=== PATIENT | male | born 1990 | race Caucasian/White ===

== ENCOUNTER 2020-03-22 10:05 | Outpatient (REF) | payer OTHER, SELFPAY ==
[2020-03-22 12:05] LABS: Appearance Urine CLEAR; Color Urine YELLOW; Glucose Urine UA NEG (NEG); Leukocyte Esterase Urine NEG (NEG); Nitrite Urine NEG (NEG); Specific Gravity - Urine 1.015 (1.005-1.025); Urine Blood NEG (NEG); Urine Ketones NEG (NEG); Urine Protein NEG (NEG-TRACE)
[2020-03-22 12:08] LABS: Estimated Average Glucose 160 mg/dL; Hemoglobin A1c % 7.2 %
[2020-03-22 12:50] LABS: Alanine Aminotransferase 43 U/L (0-40); Albumin Level 4.5 g/dL (3.5-5.0); Alkaline Phosphatase 108 U/L (39-117); Anion Gap 11 (12-20); Aspartate Amino Transferase 21 U/L (5-37); Bilirubin Total 0.6 mg/dL (0.0-1.0); Blood Urea Nitrogen 14 mg/dL (9-16); Calcium 9.4 mg/dL (8.4-10.2); Carbon Dioxide 28 mmol/L (22-29); Chloride 102 mmol/L (96-108); Cholesterol 228 mg/dL; Estimated Glomerular Filt Rate > 60; Glucose Fasting 161 mg/dL (60-99); HDL Cholesterol 39 mg/dL; LDL Cholesterol Calculated 159 mg/dl; Potassium 4.4 mmol/l (3.3-5.1); Sodium 137 mmol/L (135-145); Total Protein 7.1 g/dL (6.5-8.0); Triglycerides 151 mg/dL
[2020-03-22 12:54] LABS: Microalbumin Urine < 5.0 mg/L
== END 2020-03-22 10:06 | disposition home or self-care (01) ==
LOC: HO.LAB 10:05
PROVIDERS: PCP Internal Medicine; Visit Provider Internal Medicine
DX: Z00.00 Encounter for general adult medical examination without abnormal findings (principal); E78.6 Lipoprotein deficiency; E10.9 Type 1 diabetes mellitus without complications
CPT/HCPCS: 36415; 80053; 80061; 81003; 82043; 83036

== ENCOUNTER 2020-09-23 08:46 | Outpatient (REF) | payer OTHER, SELFPAY ==
[2020-09-23 10:01] LABS: Estimated Average Glucose 146 mg/dL; Hemoglobin A1c % 6.7 %
[2020-09-23 10:53] LABS: Alanine Aminotransferase 36 U/L (0-40); Albumin Level 4.4 g/dL (3.5-5.0); Alkaline Phosphatase 100 U/L (39-117); Aspartate Amino Transferase 17 U/L (5-37); Bilirubin Direct 0.3 mg/dL (0.0-0.5); Bilirubin Total 0.7 mg/dL (0.0-1.0); Cholesterol 227 mg/dL; Glucose Fasting 174 mg/dL (60-99); HDL Cholesterol 41 mg/dL; LDL Cholesterol Calculated 146 mg/dl; Triglycerides 203 mg/dL
[2020-09-23 13:01] LABS: Reflex LDLD? No
== END 2020-09-23 08:47 | disposition home or self-care (01) ==
LOC: HO.LAB 08:46
PROVIDERS: PCP Internal Medicine; Visit Provider Internal Medicine
DX: E10.9 Type 1 diabetes mellitus without complications (principal); E78.00 Pure hypercholesterolemia, unspecified
CPT/HCPCS: 36415; 80061; 80076; 82947; 83036

== ENCOUNTER 2021-03-25 10:48 | Outpatient (REF) | payer OTHER, SELFPAY ==
[2021-03-25 10:55] LABS: MANUAL DIFF FLAG NO
[2021-03-25 11:13] LABS: Basophils Percent Auto 0.6 % (0-2); Eosinophils Absolute Auto 0.2 X10*3/uL (0.0-0.4); Eosinophils Percent Auto 2.2 % (0-4); Hematocrit 50.6 % (42-52); Hemoglobin 16.7 g/dl (14.0-18.0); Imm Gran Abs Auto 0.01 X10*3/uL (0.00-0.03); Imm Gran Pct Auto 0.1 % (0.0-0.4); Lymphocytes Absolute Auto 2.5 X10*3/uL (1.2-4.9); Lymphocytes Percent Auto 35.9 % (20-40); Mean Corpuscular Hemoglobin 31.3 pg (27.0-33.0); Mean Corpuscular Volume 94.8 fL (80-98); Mean Platelet Volume 11.5 fL (9.4-12.4); Monocytes Absolute Auto 0.6 X10*3/uL (0.1-1.2); Monocytes Percent Auto 8.2 % (2-11); Neutrophils Absolute Auto 3.7 X10*3/uL (2.0-8.3); Platelet Count 274 X10*3/uL (160-400); Red Blood Count 5.34 X10*6/uL (4.60-5.80); Red Cell Distribution Width 11.9 % (11.0-16.0)
[2021-03-25 11:21] LABS: Estimated Average Glucose 146 mg/dL; Hemoglobin A1c % 6.7 %
[2021-03-25 11:39] LABS: Alanine Aminotransferase 27 U/L (0-40); Albumin Level 4.8 g/dL (3.5-5.0); Alkaline Phosphatase 104 U/L (39-117); Anion Gap 13 (12-20); Aspartate Amino Transferase 15 U/L (5-37); Bilirubin Total 0.8 mg/dL (0.0-1.0); Blood Urea Nitrogen 19 mg/dL (9-16); Carbon Dioxide 28 mmol/L (22-29); Chloride 105 mmol/L (96-108); Cholesterol 238 mg/dL; Estimated Glomerular Filt Rate > 60; Glucose Fasting 61 mg/dL (60-99); HDL Cholesterol 47 mg/dL; LDL Cholesterol Calculated 163 mg/dl; Potassium 4.1 mmol/L (3.3-5.1); Sodium 142 mmol/L (135-145); Total Protein 7.5 g/dL (6.5-8.0); Triglycerides 142 mg/dL
[2021-03-25 11:42] LABS: Appearance Urine CLEAR; Color Urine YELLOW; Glucose Urine UA >=1000 MG/DL (NEG); Leukocyte Esterase Urine NEG (NEG); Nitrite Urine NEG (NEG); PH 6.5 (5.0-8.0); Specific Gravity - Urine 1.015 (1.005-1.025); Urine Blood NEG (NEG); Urine Ketones NEG (NEG); Urine Protein NEG (NEG-TRACE)
[2021-03-25 12:08] LABS: Squamous Epithelial Cell Urine TRACE /LPF
[2021-03-25 12:09] LABS: RBC Urine 0 /HPF (0); WBC Urine 0 /HPF (0-4)
[2021-03-25 12:30] LABS: Creatinine Urine 147.58 mg/dL
== END 2021-03-25 10:49 | disposition home or self-care (01) ==
LOC: HO.LNP 10:48
PROVIDERS: Visit Provider Internal Medicine
DX: Z00.00 Encounter for general adult medical examination without abnormal findings (principal); E78.00 Pure hypercholesterolemia, unspecified; E10.9 Type 1 diabetes mellitus without complications
CPT/HCPCS: 80053; 80061; 81001; 81003; 82043; 83036; 85025

== ENCOUNTER 2021-12-01 23:39 | Emergency (ER) | payer OTHER, SELFPAY ==
[2021-12-02 00:02] VITALS: BP 146/86; PULSE 84; RESP 18; TEMP 36.6; O2SAT 98; BMI 28.1
[2021-12-02 00:30] LABS: Basophils Percent Auto 0.4 % (0-2); Eosinophils Absolute Auto 0.2 X10*3/uL (0.0-0.4); Eosinophils Percent Auto 1.9 % (0-4); Hematocrit 46.2 % (42.0-52.0); Imm Gran Abs Auto 0.04 X10*3/uL (0.00-0.03); Imm Gran Pct Auto 0.4 % (0.0-0.4); Lymphocytes Absolute Auto 3.3 X10*3/uL (1.2-4.9); Lymphocytes Percent Auto 33.2 % (20-40); MANUAL DIFF FLAG NO; Mean Corpuscular HGB Conc 34.6 g/dl (31.0-36.0); Mean Corpuscular Hemoglobin 31.3 pg (27.0-33.0); Mean Corpuscular Volume 90.4 fL (80.0-98.0); Mean Platelet Volume 10.7 fL (9.4-12.4); Monocytes Absolute Auto 0.7 X10*3/uL (0.1-1.2); Monocytes Percent Auto 7.2 % (2-11); Neutrophils Absolute Auto 5.6 x10*3/uL (2.0-8.3); Neutrophils Percent Auto 56.9 % (45-73); Platelet Count 248 X10*3/uL (160-400); Red Blood Count 5.11 X10*6/uL (4.60-5.80); Red Cell Distribution Width 12.3 % (11.0-16.0); White Blood Count 9.8 X10*3/uL (4.8-10.8)
--- NOTE | 2021-12-02 00:41 | ED_ITS ---
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 The patient that he was doing compressions on is high risk. Patient is up to date with tetanous and has hepatitis titers. Onset (ago): hour(s) Reason for Medical Clearance: other Place: work Traumatic Symptoms: other Associated Symptoms: denies other symptoms Related Information Home Medications Medication Instructions Recorded Confirmed insulin lispro 100 unit/mL 0 - 130 unit subcut DAILY 12/02/21 12/02/21 subcutaneous solution (Humalog U-100 Insulin) Allergies Allergy/AdvReac Type Severity Reaction Status Date / Time No Known Allergies Allergy Verified 12/02/21 00:06 Review of Systems Neurologic: Denies Sensory deficit (Neuro) Physical Exam Vital Signs: Vital Signs: Last Vital Signs Temp 98 F 12/02/21 00:02 Pulse 84 12/02/21 00:02 Resp 18 12/02/21 00:02 BP 146/86 H 12/02/21 00:02 Pulse Ox 98 12/02/21 00:02 O2 Del Method 12/02/21 00:02 BMI result Body Mass Index 28.1 Const: General: healthy appearing Nutritional Appearance: average body habitus Orientation/consciousness: oriented to person and patient oriented x3 Limitations: no limitations HEENT: Head: Yes normal to inspection Ears: external ears normal General nose exam: Normal external nose present Mouth: Normal oral and palatal mucosa present and oropharynx normal Throat: Yes posterior oropharynx normal Eyes: General: appearance normal, both eyes and all related structures Neck: Other: supple Neck: Yes normal visual inspection Chest: Chest palpation & inspection: normal inspection of the chest Resp: Auscultation: clear to auscultation bilaterally Cardio: Jugular venous distension: no JVD Rate: regular rate Rhythm: regular rhythm Heart sounds: S1 normal heart sound present and S2 normal heart sound present GI: Inspection: Yes normal to inspection Palpation (GI): Soft to palpation, nontender and No hepatosplenomegaly present Auscultation: normal bowel sounds : General: Yes no CVA tenderness Back/Spine/Pelvis: Back: no CVA tenderness Skin: General skin exam: no rashes or lesions noted Neuro: General: oriented to person and patient oriented x3 Cranial nerves: Yes CN's II-XII intact bilaterally Motor exam (neuro): 5/5 motor strength present throughout Sensory Exam: No Sensory deficit (Neuro) Extrem: General: Yes normal to inspection Psych: Appearance: grossly normal Course Reevaluation(s) Reevaluation #1: Patient is concerned about exposure to a very high risk patient. The exposure is very low risk. Will not offer prophylaxis at this time Time: 00:56 [facility] - Medical Clearance Lab Data Result diagrams: 12/02/21 00:27 12/02/21 00:27 Labs: Lab Results 12/02/21 12/02/21 Range/Units 00:27 00:27 WBC 9.8 (4.8-10.8) X10*3/uL RBC 5.11 (4.60-5.80) X10*6/uL Hgb 16.0 (14.0-18.0) g/dl Hct 46.2 (42.0-52.0) % MCV 90.4 (80.0-98.0) fL MCH 31.3 (27.0-33.0) pg MCHC 34.6 (31.0-36.0) g/dl RDW 12.3 (11.0-16.0) % Plt Count 248 (160-400) X10*3/uL MPV 10.7 (9.4-12.4) fL Immature Gran % (Auto) 0.4 (0.0-0.4) % Neut % (Auto) 56.9 (45-73) % Lymph % (Auto) 33.2 (20-40) % [place] % (Auto) 7.2 (2-11) % Eos % (Auto) 1.9 (0-4) % Baso % (Auto) 0.4 (0-2) % Lymph # (Auto) 3.3 (1.2-4.9) X10*3/uL [place] # (Auto) 0.7 (0.1-1.2) X10*3/uL Eos # (Auto) 0.2 (0.0-0.4) X10*3/uL Baso # (Auto) 0.0 (0.0-0.2) X10*3/uL Abs Immat Gran (auto) 0.04 H (0.00-0.03) X10*3/uL Absolute Neuts (auto) 5.6 (2.0-8.3) x10*3/uL Absolute Nucleated RBC 0.000 (0.0-0.012) X10*3/uL Nucleated RBC % (auto) 0.0 (0.0-0.2) /100WBC Sodium 136 (135-145) mmol/L Potassium 3.8 (3.3-5.1) mmol/L Chloride 101 (96-108) mmol/L Carbon Dioxide 24 (22-29) mmol/L Anion Gap 15 (12-20) BUN 17 H (9-16) mg/dL Creatinine 1.14 (0.5-1.4) mg/dL Estim Creat Clear Calc 100.8 Estimated GFR > 60 Random Glucose 247 H (60-115) mg/dL Calcium 9.5 (8.4-10.2) mg/dL Total Bilirubin 0.7 (0.0-1.0) mg/dL Direct Bilirubin 0.2 (0.0-0.5) mg/dL AST 16 (5-37) U/L ALT 31 (0-40) U/L Alkaline Phosphatase 110 (39-117) U/L Total Protein 7.3 (6.5-8.0) g/dL Albumin 4.6 (3.5-5.0) g/dL Discharge Plan Discharge Clinical Impression: Exposure to body fluid of infectious patient Patient Disposition: Home, Self-Care Prescriptions: No Action insulin lispro [Humalog U-100 Insulin] 100 unit/mL solution 0 - 130 unit subcut DAILY Referrals: Physician,Unknown J [Primary Care Provider] - 1 day (follow up with [facility] tomorrow)
[2021-12-02 00:47] LABS: Alanine Aminotransferase 31 U/L (0-40); Albumin Level 4.6 g/dL (3.5-5.0); Alkaline Phosphatase 110 U/L (39-117); Anion Gap 15 (12-20); Aspartate Amino Transferase 16 U/L (5-37); Bilirubin Direct 0.2 mg/dL (0.0-0.5); Bilirubin Total 0.7 mg/dL (0.0-1.0); Blood Urea Nitrogen 17 mg/dL (9-16); Calcium 9.5 mg/dL (8.4-10.2); Carbon Dioxide 24 mmol/L (22-29); Chloride 101 mmol/L (96-108); Creatinine Clr Calc Pharmacy 100.8; Estimated Glomerular Filt Rate > 60; Glucose Random 247 mg/dL (60-115); Potassium 3.8 mmol/L (3.3-5.1); Sodium 136 mmol/L (135-145); Total Protein 7.3 g/dL (6.5-8.0)
[2021-12-02 01:21] LABS: HIV AB/AG Nonreactive (Nonreactive); HIV Num 1 0.07 S/CO (0.00-0.99)
[2021-12-02 09:02] LABS: HBS Num1 1.76 mIU/mL (0-7.99); HBc Num1 0.09 S/CO (0.00-0.79); HBsAGNum1 0.26 S/CO (0.00-0.99); Hepatitis B Core Antibody Nonreactive (Nonreactive); Hepatitis B Surface Antigen Negative (Negative); ~HepC Num1 0.06 S/CO (0.00-0.79); ~Hepatitis B Surface Antibody NONREACTIVE (Nonreactive); ~Hepatitis C Antibody Nonreactive (Nonreactive)
== END 2021-12-02 01:43 | disposition home or self-care (01) ==
PROVIDERS: Emergency Provider Emergency Medicine; PCP Internal Medicine
DX: Z04.2 Encounter for examination and observation following work accident (principal); Z77.21 Contact with and (suspected) exposure to potentially hazardous body fluids
CPT/HCPCS: 36415; 80048; 80076; 85025; 86704; 86706; 86803; 87340; 87389; 99282; 99283

== ENCOUNTER → 2022-04-08 08:18 | Outpatient (BNVA) | payer OTHER, SELFPAY | PROVIDERS: PCP Internal Medicine; Visit Provider Physician Assistant | DX: S60.511A Abrasion of right hand, initial encounter (principal); S80.01XA Contusion of right knee, initial encounter; S90.02XA Contusion of left ankle, initial encounter; S90.32XA Contusion of left foot, initial encounter; W50.0XXA Accidental hit or strike by another person, initial encounter | CPT/HCPCS: 73564; 73610; 73630; 99204 ==

== ENCOUNTER → 2022-04-15 10:00 | Outpatient (BNVA) | payer OTHER, SELFPAY | PROVIDERS: PCP Internal Medicine; Visit Provider Physician Assistant | DX: S93.402A Sprain of unspecified ligament of left ankle, initial encounter (principal); X50.0XXA Overexertion from strenuous movement or load, initial encounter | CPT/HCPCS: 99213 ==

== ENCOUNTER 2023-01-26 11:39 | Outpatient (REF) | payer OTHER, SELFPAY ==
[2023-01-26 11:48] LABS: MANUAL DIFF FLAG NO
[2023-01-26 12:30] LABS: Appearance Urine Clear; Color Urine Yellow; Glucose Urine UA Negative (Negative); Leukocyte Esterase Urine Negative (Negative); Nitrite Urine Negative (Negative); Specific Gravity - Urine <= 1.005 (1.005-1.025); Urine Blood Negative (Negative); Urine Ketones Negative (Negative); Urine Protein Negative (Neg-Trace)
[2023-01-26 12:31] LABS: Basophils Absolute Auto 0.1 X10*3/uL (0.0-0.2); Basophils Percent Auto 0.6 % (0-2); Eosinophils Absolute Auto 0.3 X10*3/uL (0.0-0.4); Eosinophils Percent Auto 3.6 % (0-4); Hematocrit 46.6 % (42.0-52.0); Hemoglobin 15.6 g/dl (14.0-18.0); Imm Gran Abs Auto 0.02 X10*3/uL (0.00-0.03); Imm Gran Pct Auto 0.3 % (0.0-0.4); Lymphocytes Percent Auto 38.1 % (20-40); Mean Corpuscular HGB Conc 33.5 g/dl (31.0-36.0); Mean Corpuscular Volume 95.5 fL (80.0-98.0); Mean Platelet Volume 11.6 fL (9.4-12.4); Monocytes Absolute Auto 0.5 X10*3/uL (0.1-1.2); Monocytes Percent Auto 6.8 % (2-11); Neutrophils Absolute Auto 3.9 x10*3/uL (2.0-8.3); Neutrophils Percent Auto 50.6 % (45-73); Platelet Count 238 X10*3/uL (160-400); Red Blood Count 4.88 X10*6/uL (4.60-5.80); Red Cell Distribution Width 12.1 % (11.0-16.0); White Blood Count 7.8 X10*3/uL (4.8-10.8)
[2023-01-26 12:36] LABS: Bacteria Urine None Seen (None Seen); Hyaline Casts Urine 0-2 /LPF (0-2); RBC Urine 0-2 /HPF (0-2); Squamous Epithelial Cell Urine 0-2 /HPF (0-2); WBC Urine 0-5 /HPF (0-5)
[2023-01-26 12:38] LABS: Estimated Average Glucose 123 mg/dL; Hemoglobin A1c % 5.9 %
[2023-01-26 12:43] LABS: Alanine Aminotransferase 26 U/L (0-40); Albumin Level 4.5 g/dL (3.5-5.0); Alkaline Phosphatase 97 U/L (39-117); Anion Gap 12 (12-20); Aspartate Amino Transferase 19 U/L (5-37); Bilirubin Total 0.5 mg/dL (0.0-1.0); Blood Urea Nitrogen 15 mg/dL (9-16); Calcium 9.8 mg/dL (8.4-10.2); Carbon Dioxide 28 mmol/L (22-29); Chloride 104 mmol/L (96-108); Cholesterol 217 mg/dL; Estimated Glomerular Filt Rate > 60; Glucose Fasting 92 mg/dL (60-99); HDL Cholesterol 42 mg/dL; LDL Cholesterol Calculated 137 mg/dl; Potassium 4.1 mmol/L (3.3-5.1); Sodium 140 mmol/L (135-145); Total Protein 7.4 g/dL (6.5-8.0); Triglycerides 190 mg/dL
[2023-01-26 13:22] LABS: Creatinine Urine 35.26 mg/dL; Microalbumin Urine < 5.0 mg/L
== END 2023-01-26 11:40 | disposition home or self-care (01) ==
LOC: HO.LNP 11:39
PROVIDERS: Visit Provider Internal Medicine
DX: Z00.00 Encounter for general adult medical examination without abnormal findings (principal); E10.9 Type 1 diabetes mellitus without complications; E78.00 Pure hypercholesterolemia, unspecified
CPT/HCPCS: 80053; 80061; 81001; 82043; 83036; 85025

== ENCOUNTER 2023-02-02 10:15 | Outpatient (REF) | payer OTHER, SELFPAY ==
[2023-02-02 11:34] LABS: HIV AB/AG Nonreactive (Nonreactive); HIV Num 1 0.05 S/CO (0.00-0.99)
[2023-02-02 11:55] LABS: Syphilis Screen Nonreactive (Nonreactive)
[2023-02-02 17:34] LABS: CT PCR NOT DETECTED (Not Detect.); NG PCR NOT DETECTED (Not Detect.)
== END 2023-02-02 10:16 | disposition home or self-care (01) ==
LOC: HO.LAB 10:15
PROVIDERS: PCP Internal Medicine; Visit Provider Internal Medicine
DX: Z11.4 Encounter for screening for human immunodeficiency virus [HIV] (principal); L98.9 Disorder of the skin and subcutaneous tissue, unspecified; Z20.2 Contact with and (suspected) exposure to infections with a predominantly sexual mode of transmission
CPT/HCPCS: 0353U; 86780; 87389

== ENCOUNTER 2023-05-06 10:38 | Outpatient (REF) | payer OTHER, SELFPAY ==
[2023-05-06 11:06] LABS: Cholesterol 240 mg/dL (<200); HDL Cholesterol 37 mg/dL (>40); LDL Cholesterol Calculated 179 mg/dL (<100); Triglycerides 122 mg/dL (<150)
[2023-05-06 11:15] LABS: Alanine Aminotransferase 24 U/L (0-40); Albumin Level 4.5 g/dL (3.5-5.0); Alkaline Phosphatase 109 U/L (39-117); Aspartate Amino Transferase 15 U/L (5-37); Bilirubin Direct 0.2 mg/dL (0.0-0.5); Bilirubin Total 0.8 mg/dL (0.0-1.0); Glucose Fasting 392 mg/dL (60-99); Total Protein 7.3 g/dL (6.5-8.0)
[2023-05-06 11:21] LABS: Estimated Average Glucose 160 mg/dL; Hemoglobin A1c % 7.2 % (<6.0)
[2023-05-06 11:29] LABS: Reflex LDLD? No
== END 2023-05-06 10:39 | disposition home or self-care (01) ==
LOC: HO.LNP 10:38
PROVIDERS: Visit Provider Internal Medicine
DX: E10.9 Type 1 diabetes mellitus without complications (principal); E78.00 Pure hypercholesterolemia, unspecified
CPT/HCPCS: 80061; 80076; 82947; 83036

== ENCOUNTER 2023-07-09 21:02 | Emergency (ER) | payer OTHER, SELFPAY ==
--- NOTE | ~2023-07-09 | XR_ITS ---
EXAMINATION: XR KNEE, LEFT CLINICAL INFORMATION: Fall COMPARISON: None available. TECHNIQUE: Four views of the left knee. FINDINGS: No fracture or joint effusion. Alignment is anatomic. Joint spaces are maintained. No abnormal soft tissue calcification. XR/XR knee LT 3V IMPRESSION: Normal left knee.
[2023-07-09 21:16] VITALS: BP 128/77; PULSE 88; RESP 17; TEMP 37; O2SAT 96; BMI 31.3
--- NOTE | 2023-07-09 23:53 | ED_ITS ---
HPI - General Adult General Chief complaint: Fall Stated complaint: work inj, fell and hurt left knee Time Seen by Provider: 07/09/23 23:12 Source: patient, RN notes reviewed and old records reviewed Mode of arrival: ambulatory Limitations: no limitations History of Present Illness HPI narrative: 33-year-old male presents for evaluation of left knee pain. 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 must have stepped on snow or ice. He reports that his left knee drug little bit to the side and he fell to the ground He denies hitting his head or losing consciousness He reports he is able to walk with minimal discomfort Patient reports that he explained to his boss what happened and was told to come to the ER for evaluation Related Data Home Medications Medication Instructions Recorded Confirmed insulin lispro 100 unit/mL 0 - 130 unit subcut DAILY 12/02/21 12/02/21 subcutaneous solution (Humalog U-100 Insulin) Allergies Allergy/AdvReac Type Severity Reaction Status Date / Time No Known Allergies Allergy Verified 07/09/23 21:13 Review of Systems Constitutional: Constitutional: Denies headache(s) ENT: Denies headache(s) Musculoskeletal: Musculoskeletal: Reports arthralgias, Denies joint swelling and Denies limited range of motion Neurologic: Denies headache(s) PMFSH Social History Social History Advance Directives: No Advance Directives Information Provided: No Physical Exam ED Vital Signs: Vital Signs - 24 hr 07/09/23 21:16 Temperature 98.6 F Pulse Rate 88 Respiratory Rate 17 Blood Pressure 128/77 Pulse Oximetry 96 Oxygen Delivery Method Room Air BMI result Body Mass Index 31.3 Const General: healthy appearing, comfortable, no acute distress, alert and awake Nutritional Appearance: well nourished Orientation/consciousness: patient oriented x3 HENMT Head: Yes normocephalic and Yes atraumatic Resp Effort & Inspection: normal respiratory effort, able to speak in complete sentences and not labored Skin General skin exam: elasticity normal Neuro General: patient oriented x3 Cranial nerves: Yes Bilaterally intact EOM present Cognition (Neuro): normal cognition Extrem Other: There is no significant edema, erythema, ecchymosis or tenderness to the entire left knee. Negative anterior drawer testing. Patient has full range of motion to the left knee and is able to ambulate without difficulty Medical Decision Making Medical Decision Making MDM Narrative: 33-year-old male presents for evaluation of a minor knee injury to the left. He has a very reassuring exam, there is no significant edema, joint effusion or decreased range of motion. X-rays negative for fracture, he will be discharged with symptomatic care only Differential Diagnosis Differential Diagnoses: The differential diagnosis associated with the presentation includes Knee pain Knee sprain Contusion Ligamentous injury Independent Interpretation I performed an independent interpretation of an: Plain X-Ray (No obvious fracture of the left knee) Radiology Impression Discussion of test interpretation with radiology: I have reviewed the radiologist's reading. (Normal left knee) Discharge Plan Discharge Clinical Impression: Acute pain of left knee Patient Disposition: Home, Self-Care Instructions: Knee Pain (ED) Additional Instructions: Your x-ray showed a normal left knee x-ray, no evidence of fracture. Based on your physical exam, I have a low suspicion for ligamentous injury You may apply ice and use ibuprofen for the next few days Follow-up with your primary doctor Prescriptions: No Action insulin lispro [Humalog U-100 Insulin] 100 unit/mL solution 0 - 130 unit subcut DAILY Interventions: ED Discharge Assessment Last Done: 07/10/23 00:05 Discharge Date/Time: 07/10/23 00:10
== END 2023-07-10 00:10 | disposition home or self-care (01) ==
PROVIDERS: Emergency Provider Internal Medicine
DX: Z04.2 Encounter for examination and observation following work accident (principal); M25.562 Pain in left knee
CPT/HCPCS: 73562; 99283; 99284

== ENCOUNTER 2023-09-09 11:53 | Outpatient (REF) | payer OTHER, SELFPAY ==
[2023-09-09 12:46] LABS: Alanine Aminotransferase 43 U/L (0-40); Albumin Level 4.3 g/dL (3.5-5.0); Alkaline Phosphatase 119 U/L (39-117); Aspartate Amino Transferase 24 U/L (5-37); Bilirubin Direct 0.3 mg/dL (0.0-0.5); Bilirubin Total 0.7 mg/dL (0.0-1.0); Cholesterol 221 mg/dL (<200); Glucose Fasting 191 mg/dL (60-99); HDL Cholesterol 45 mg/dL (>40); LDL Cholesterol Calculated 155 mg/dL (<100); Total Protein 7.3 g/dL (6.5-8.0); Triglycerides 108 mg/dL (<150)
[2023-09-09 12:49] LABS: Reflex LDLD? No
[2023-09-09 13:16] LABS: Estimated Average Glucose 140 mg/dL; Hemoglobin A1c % 6.5 % (<6.0)
== END 2023-09-09 11:54 | disposition home or self-care (01) ==
LOC: HO.LNP 11:53
PROVIDERS: Visit Provider Internal Medicine
DX: E10.9 Type 1 diabetes mellitus without complications (principal); E78.00 Pure hypercholesterolemia, unspecified
CPT/HCPCS: 80061; 80076; 82947; 83036

== ENCOUNTER 2024-03-16 12:03 | Outpatient (REF) | payer SELFPAY ==
[2024-03-16 12:14] LABS: MANUAL DIFF FLAG NO
[2024-03-16 12:20] LABS: Basophils Absolute Auto 0.1 X10*3/uL (0.0-0.2); Basophils Percent Auto 0.7 % (0-2); Eosinophils Absolute Auto 0.3 X10*3/uL (0.0-0.4); Eosinophils Percent Auto 3.5 % (0-4); Hematocrit 48.6 % (42.0-52.0); Hemoglobin 16.2 g/dl (14.0-18.0); Imm Gran Abs Auto 0.02 X10*3/uL (0.00-0.03); Imm Gran Pct Auto 0.2 % (0.0-0.4); Lymphocytes Absolute Auto 2.6 X10*3/uL (1.2-4.9); Lymphocytes Percent Auto 29.7 % (20-40); Mean Corpuscular HGB Conc 33.3 g/dl (31.0-36.0); Mean Corpuscular Hemoglobin 31.8 pg (27.0-33.0); Mean Corpuscular Volume 95.5 fL (80.0-98.0); Mean Platelet Volume 11.5 fL (9.4-12.4); Monocytes Absolute Auto 0.7 X10*3/uL (0.1-1.2); Monocytes Percent Auto 8.3 % (2-11); Neutrophils Percent Auto 57.6 % (45-73); Platelet Count 242 X10*3/uL (160-400); Red Blood Count 5.09 X10*6/uL (4.60-5.80); Red Cell Distribution Width 12.3 % (11.0-16.0); White Blood Count 8.6 X10*3/uL (4.8-10.8)
[2024-03-16 12:21] LABS: Appearance Urine Clear; Color Urine Yellow; Glucose Urine UA Negative (Negative); Leukocyte Esterase Urine Negative (Negative); Nitrite Urine Negative (Negative); PH 5.5 (5.0-9.0); Urine Blood Negative (Negative); Urine Ketones Negative (Negative); Urine Protein Negative (Neg-Trace)
[2024-03-16 12:24] LABS: Bacteria Urine None Seen (None Seen); Hyaline Casts Urine 0-2 /LPF (0-2); RBC Urine 0-2 /HPF (0-2); Squamous Epithelial Cell Urine 0-2 /HPF (0-2); WBC Urine 0-5 /HPF (0-5)
[2024-03-16 12:32] LABS: Estimated Average Glucose 157 mg/dL; Hemoglobin A1c % 7.1 % (<6.0)
[2024-03-16 12:33] LABS: Alanine Aminotransferase 51 U/L (0-40); Albumin Level 4.5 g/dL (3.5-5.0); Alkaline Phosphatase 94 U/L (39-117); Anion Gap 11 (12-20); Aspartate Amino Transferase 29 U/L (5-37); Bilirubin Total 0.9 mg/dL (0.0-1.0); Blood Urea Nitrogen 18 mg/dL (9-16); Calcium 9.9 mg/dL (8.4-10.2); Carbon Dioxide 27 mmol/L (22-29); Chloride 108 mmol/L (96-108); Cholesterol 244 mg/dL (<200); Estimated Glomerular Filt Rate > 60; Glucose Fasting 136 mg/dL (60-99); HDL Cholesterol 38 mg/dL (>40); LDL Cholesterol Calculated 179 mg/dL (<100); Potassium 4.2 mmol/L (3.3-5.1); Sodium 142 mmol/L (135-145); Total Protein 7.4 g/dL (6.5-8.0); Triglycerides 137 mg/dL (<150)
[2024-03-16 12:59] LABS: Creatinine Urine 97.76 mg/dL; Microalbum/Creatinine Ratio Ur 27.6 ug/mg cr (<30)
== END 2024-03-16 12:04 | disposition home or self-care (01) ==
LOC: HO.LNP 12:03
PROVIDERS: Visit Provider Internal Medicine
DX: Z00.00 Encounter for general adult medical examination without abnormal findings (principal); E10.9 Type 1 diabetes mellitus without complications; E78.6 Lipoprotein deficiency; E78.00 Pure hypercholesterolemia, unspecified
CPT/HCPCS: 80053; 80061; 81001; 82043; 82570; 83036; 85025

== ENCOUNTER 2024-05-28 21:32 | Emergency (ER) | payer OTHER, SELFPAY ==
--- NOTE | ~2024-05-28 | XR_ITS ---
EXAMINATION: XR KNEE, RIGHT CLINICAL INFORMATION: fall/pain COMPARISON: None available. TECHNIQUE: Four views of the right knee. FINDINGS: No fracture or joint effusion. Alignment is anatomic. Joint spaces are maintained. No abnormal soft tissue calcification. XR/XR knee RT 4V IMPRESSION: No significant abnormality identified. Electronically signed by: Franko Sharma MD 05/28/2024 11:23 PM [facility]
--- NOTE | ~2024-05-28 | XR_ITS ---
EXAMINATION: XR WRIST, RIGHT CLINICAL INFORMATION: fall/pain COMPARISON: None available. TECHNIQUE: PA, lateral, and oblique views of the right wrist. FINDINGS: The bones and soft tissues are unremarkable. No fracture. Alignment is anatomic with normal joint spaces. No erosions or abnormal soft tissue calcifications. XR/XR wrist RT min 3V IMPRESSION: Normal right wrist. Electronically signed by: Yevgeniy Mendez MD 05/28/2024 11:32 PM [facility]
[2024-05-28 21:33] VITALS: BP 126/85; PULSE 107; RESP 16; TEMP 36.6; O2SAT 97; BMI 31.2
[2024-05-28] MEDS: Ibuprofen 600 MG TABLET PO (21:59)
--- NOTE | 2024-05-28 22:03 | ED_ITS ---
HPI - Extremity Problem General Chief complaint: Extremity Injury, Upper Stated complaint: Knee inj bilateral hand inj work related Time Seen by Provider: 05/28/24 22:03 History of Present Illness ED Provider: Lauren BURTON Narrative: The patient is a 34-year-old male. He is a type 1 diabetic. 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 He has some pain in his right wrist, primarily on the ulnar side of the wrist. He also has some abrasions to the palm of the left hand and to both knees. He has pain in both knees. The right knee hurts more than the left knee. He is able to walk. Related Data Home Medications ?Medication ?Instructions ?Recorded ?Confirmed insulin lispro 100 unit/mL 0 - 130 unit subcut DAILY 12/02/21 12/02/21 subcutaneous solution (Humalog U-100 Insulin) Allergies Allergy/AdvReac Type Severity Reaction Status Date / Time No Known Allergies Allergy Verified 05/28/24 21:37 Review of Systems Review of Systems: Yes all other systems are reviewed and are negative [facility] Social History Social History Smoked in Last 30 Days: No Use of substances other than those prescribed or required for medical reasons: Unknown Advance Directives: No Advance Directives Information Provided: No Do you have a plan to hurt others: No Plan Physical Exam Vital Signs: Vital Signs: Last Vital Signs Temp 97.7 F 05/28/24 23:03 Pulse 105 H 05/28/24 23:03 Resp 18 05/28/24 23:03 BP 149/90 H 05/28/24 23:03 Pulse Ox 95 05/28/24 23:03 O2 Del Method Room Air 05/28/24 23:03 BMI result Body Mass Index 31.2 Const: Other: The patient is a 34-year-old male who was awake and alert and does not seem acutely ill. He is pleasant and cooperative. HEENT: Other: No trauma to the head or the face. Eyes: General: appearance normal, both eyes and all related structures Neck: Other: Moving his neck easily Skin: Other: The patient has abrasions to the skin of the knees and the palm of the left hand. Neuro: Other: The patient is awake and alert with a normal mental status. Cranial nerves are grossly intact. He has intact strength in his extremities. Extrem: Other: The patient has some tenderness along the ulnar aspect of the right wrist that is worse with supination. He has no snuffbox tenderness of the right wrist. He can flex and extend the wrist reasonably well. The patient has the abrasions to the skin of the left palm and to the skin of both knees. He has some tenderness to the right knee. No instability. 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 He has a abrasions to both knees has some injuries to both hands. On the right hand he has wrist pain which is mostly on the ulnar side of the wrist. X-rays of the right hand and right knee are negative. The patient believes he is up-to-date on tetanus. We will treat his right wrist injury with the splint. Abrasions were cleaned and dressed with bacitracin. [facility] up with the [facility]. Discharge Plan Discharge Clinical Impression: Sprain and strain of wrist, Abrasion of left hand, Abrasion of knee, bilateral Patient Disposition: Home, Self-Care Instructions: Abrasion (ED), Wrist Sprain (ED) Additional Instructions: Although the official reading of your x-rays is not available I think you do not have any fractures. I will call you the official reading is different. I think you have a mild sprain of your right wrist. Please wear the wrist splint provided. You have abrasions to your hands and your knees. Please keep these wounds clean and dry. Use bacitracin and a Band-Aid to keep them covered. My hope is you will be able to get checked at the [facility] on Wednesday for your next scheduled shift. Use acetaminophen as needed for discomfort. Return to the emergency room if worse. Prescriptions: No Action insulin lispro [Humalog U-100 Insulin] 100 unit/mL solution 0 - 130 unit subcut DAILY Referrals: [facility] [Provider Group] (Right wrist sprain, multiple abrasion) Jake Pascal MD [Primary Care Provider] - Stand Alone Forms: Work/School Release Interventions: ED Discharge Assessment Last Done: 05/28/24 23:03 Discharge Date/Time: 05/28/24 23:03 Print Language: Turkmen
[2024-05-28 22:04] VITALS: BP 142/86; PULSE 107; RESP 18; O2SAT 95
[2024-05-28] MEDS: Bacitracin Oint 0.9 GM PACKET 3 APPL TOPICAL (22:48)
[2024-05-28 22:55] VITALS: BP 149/90; PULSE 105; RESP 18; TEMP 36.5; O2SAT 95
[2024-05-28 23:03] VITALS: BP 149/90; PULSE 105; RESP 18; TEMP 36.5; O2SAT 95
== END 2024-05-28 23:03 | disposition home or self-care (01) ==
PROVIDERS: Emergency Provider Emergency Medicine; PCP Internal Medicine
DX: S63.501A Unspecified sprain of right wrist, initial encounter (principal); S60.512A Abrasion of left hand, initial encounter; S80.212A Abrasion, left knee, initial encounter; S80.211A Abrasion, right knee, initial encounter; M25.532 Pain in left wrist; M25.531 Pain in right wrist; E10.9 Type 1 diabetes mellitus without complications; Y33.XXXA Other specified events, undetermined intent, initial encounter; Y93.9 Activity, unspecified; Y92.9 Unspecified place or not applicable; Y99.0 Civilian activity done for income or pay; Z79.899 Other long term (current) drug therapy; Z79.4 Long term (current) use of insulin
CPT/HCPCS: 29125; 73110; 73564; 99284

== ENCOUNTER → 2024-05-29 10:35 | Outpatient (BNVA) | payer OTHER, SELFPAY | PROVIDERS: PCP Internal Medicine; Visit Provider Physician Assistant Medical | DX: S60.211A Contusion of right wrist, initial encounter (principal); S60.212A Contusion of left wrist, initial encounter; S80.02XA Contusion of left knee, initial encounter; S80.01XA Contusion of right knee, initial encounter; S63.591A Other specified sprain of right wrist, initial encounter; Y35.891A Legal intervention involving other specified means, law enforcement official injured, initial encounter | CPT/HCPCS: 99202 ==

== ENCOUNTER → 2024-05-31 13:52 | Outpatient (BNVA) | payer OTHER, SELFPAY | PROVIDERS: PCP Internal Medicine; Visit Provider Physician Assistant | DX: S63.501A Unspecified sprain of right wrist, initial encounter (principal); Y35.891A Legal intervention involving other specified means, law enforcement official injured, initial encounter | CPT/HCPCS: 99213 ==

== ENCOUNTER → 2024-06-02 08:44 | Outpatient (BNVA) | payer OTHER, SELFPAY | PROVIDERS: PCP Internal Medicine; Visit Provider Physician Assistant | DX: S63.591A Other specified sprain of right wrist, initial encounter (principal); Y35.891A Legal intervention involving other specified means, law enforcement official injured, initial encounter | CPT/HCPCS: 99213 ==

== ENCOUNTER 2024-06-08 20:55 | Inpatient (IN) | payer OTHER, SELFPAY ==
--- NOTE | ~2024-06-08 | MR_ITS ---
EXAMINATION: MR KNEE WITHOUT AND WITH CONTRAST, LEFT CLINICAL INFORMATION: Nonresolving cellulitis COMPARISON: CT 06/10/2024 TECHNIQUE: MRI of the knee was performed before and after the intravenous administration of 10 mL Gadavist on a high-field scanner. FINDINGS: MENISCI: Medial meniscus: Intact. Lateral meniscus: Intact. LIGAMENTS: Cruciate: Intact. Collateral: Intact. EXTENSOR MECHANISM: Intact. Small skin defect anterior to the tibial tubercle with underlying edema with reticular enhancement/cellulitis and an ill-defined phlegmonous collection measuring approximately 1.9 x 0.9 x 2.8 cm. No drainable collection. No underlying osseous abnormality to suggest osteomyelitis. The patella tendon appears intact. There is mild reactive edema and fluid in the deep infrapatellar bursa. Subcutaneous edema surrounds the knee and extends distally superficial to the muscles of the lateral compartment. ARTICULAR CARTILAGE/BONE: Patellofemoral compartment: Normal. Medial compartment: Normal. Lateral compartment: Normal. JOINT FLUID AND BURSAE: No joint effusion. MR/MR knee LT wo/w con IMPRESSION: 1. Small skin defect anterior to the tibial tubercle with underlying edema/cellulitis and an ill-defined phlegmonous collection measuring approximately 1.9 x 0.9 x 2.8 cm. No drainable collection. No evidence of osteomyelitis. Mild reactive edema and fluid in the deep infrapatellar bursa. 2. Subcutaneous edema surrounds the knee and extends distally superficial to the muscles of the lateral compartment. Electronically signed by: Riley Neal MD 06/11/2024 01:41 PM EST
--- NOTE | ~2024-06-08 | XR_ITS ---
EXAMINATION: XR KNEE, LEFT CLINICAL INFORMATION: injury COMPARISON: None available. TECHNIQUE: 2 views of the left knee. FINDINGS: No fracture or joint effusion. Alignment is anatomic. Joint spaces are maintained. No abnormal soft tissue calcification. XR/XR knee LT 2V IMPRESSION: No significant abnormality identified Electronically signed by: Franko Sharma MD 06/08/2024 11:33 PM EST
--- NOTE | ~2024-06-08 | US_ITS ---
EXAMINATION: US TRIPLEX LOWER EXTREMITY, LEFT CLINICAL INFORMATION: Left lower extremity pain. COMPARISON: None available. TECHNIQUE: Color-flow triplex imaging with spectral analysis and compression Doppler were performed on the left lower extremity. FINDINGS: Respiratory variation, normal compression and augmented flow are noted throughout the left lower extremity. The visualized common femoral vein, superficial femoral vein, profunda femoral vein, popliteal vein and midcalf peroneal and posterior tibial venous segments show no evidence of deep venous thrombosis. There is no Vega's cyst. US/US venous duplex LE LT IMPRESSION: No evidence of deep venous thrombosis involving the left lower extremity. Electronically signed by: Franko Sharma MD 06/08/2024 11:16 PM EST
--- NOTE | ~2024-06-08 | CT_ITS ---
EXAMINATION: CT KNEE WITH CONTRAST, LEFT CLINICAL INFORMATION: Infection, evaluate for abscess or joint effusion. COMPARISON: Radiographs 06/08/2024 TECHNIQUE: CT of the left knee is performed following intravenous administration of 85 mL Omnipaque 350 iodinated contrast. Sagittal and coronal reformats were performed. This CT examination was performed using dose optimization techniques as appropriate, variously including the following: *Automated exposure control *Adjustment of mA and/or kV according to patient size (this includes techniques or standardized protocols for targeted exams where dose is matched to indication/reason for exam; i.e. extremities or head) *Use of iterative reconstruction technique Dose Length Product: 253 mGycm. FINDINGS: Skin wound or laceration anterior to the proximal tibia with prominent subcutaneous edema although no peripherally enhancing collection to indicate an abscess. Inflammatory stranding extends to the underlying tibial tubercle and patella tendon. No cortical erosion or obvious tendon tear. There is a small enthesophyte of the tibial tubercle. There is no joint effusion. No acute osseous abnormality. No significant degenerative findings. No radiopaque foreign body. CT/CT knee LT w IV con IMPRESSION: Skin wound or laceration anterior to the proximal tibia with prominent subcutaneous edema/cellulitis. No abscess. No joint effusion. No acute osseous abnormality. Electronically signed by: Riley Neal MD 06/10/2024 02:24 PM [facility]
--- OUTSIDE RECORDS SUMMARY | 2024-06-08 20:57 | XMS_ITS | Continuity of Care Document ---
Author Organization [facility] Address [address] [place] [id number]- Care Team Providers Care Mangle Catcher Name Role Phone Domenic Valdes Primary Care Physician [phone] Encounter Date(s): 06/05/24 - 06/05/[address] [address]- Encounter Diagnosis Type 1 diabetes mellitus(Discharge Diagnosis) - 06/05/24 Hyperlipidemia(Discharge Diagnosis) - 06/05/24 Physical exam, pre-employment(Discharge Diagnosis) - 06/05/24 Discharge Disposition: 01-Discharge Home or Self Care Attending Physician: Cyndy Lincoln PA-C Encounter Type: Clinic Allergies, Adverse Reactions, Alerts No Known Medication Allergies Assessment and Plan Future Appointments Appointment Date:06/08/2024 10:45:00 AM Scheduled Provider: [facility] Appointment Type:Regular Stress Test Future Scheduled Tests Laboratory* Hemoglobin A1c 06/05/24 * Comprehensive Metabolic Panel 06/05/24 * Lipid Panel 06/05/24 Medications atorvastatin 40 mg oral tablet 1 tab, Oral, Daily, 0 Refill(s) Start Date: 06/05/24 Status: Ordered Repeat number: 1 HumaLOG Tempo Pen 100 units/mL injectable solution 0-150,units, Daily, 0 Refill(s) Start Date: 06/05/24 Status: Ordered Repeat number: 1 Problem List Condition Confirmation Course Effective Dates Status H ealth Status Informant Hyperlipidemia Confirmed Active Type 1 diabetes mellitus Confirmed Active Vital Signs Most recent to oldest [Reference Range]: 1 Peripheral Pulse Rate [60-100 bpm] 82 bp m (06/05/24 2:11 PM) Blood Pressure [90-140/60-90 mmHg] 94/68 mmHg (06/05/24 2:11 PM) Social History Social History Type Response Smoking Status Never smoker entered on: 06/05/24 Sex Male Sex Representation Male (finding) Annual Wellness Exam * Cyndy Lincoln PA-C: PERFORM Event Display: Annual Wellness Exam Authored Date: [id number] Chief 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 History of Present Illness The patient is being seen police physical exam.?? 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 He has had CPE with PCP in March in [place].?? He lives in [place], but is trying to move to [place]. [place] [employer] gave him conditional offer.?? He reports being able to perform one minute of sit ups, 300 meter spring, one minute of push-ups, and rune one and a half miles (the latter w/in around 14 minutes). He denies dyspnea??or chest pain on exertion.? He is type 1 diabetic for which he was following [facility] endocrinology in [place]. He is on insulin pump and statin. Last hbA1c was 6.9% 4 to 5 months ago. His next endo follow up is in July.? Patient reports health as ??good. ?? Social ETOH= 0 to 2 beverages every other week with dinner Nicotine=None?? Recreational Drugs= None ?? Pain Pain Present: No actual or suspected pain Advance Directive Advance Directive Additional Information: No Advance Directive Inpt: No Advance Directive, information provided SBIRT Screening Results Gender: Male Drugs used in past 12 months: No Freq in last yr had 5+ drinks/day: Never SBIRT declined: No SBIRT Risk(s)?: None Falls Risk Assessment Fall Risk Past Year: Yes (06/05/24) Worried About Falling: No (06/05/24) Use a Cane or Walker?: No (06/05/24) Someone Helps You in the Morning: No (06/05/24) No qualifying data available. Disability Review: Hearing ?[facility] Deaf Hearing Impaired: No (06/05/24) Visual ?[facility] Blind Visually Impaired: No (06/05/24) Cognitive ?[facility] Difficulty Concentrating: No (06/05/24) Difficulty Walking ?[facility] Difficulty Walking: No (06/05/24) Difficulties at home ?[facility] Difficulty Dressing: No (06/05/24) Difficulty with errands ?[facility] Difficulty Doing Errands: No (06/05/24) Review of Systems As per HPI; rest negative or not pertinent to today's visit Physical Exam Vitals & Measurements HR:??82??bpm??(Peripheral)?? BP:??94/68??mmHg?? SpO2:??98%?? HT:??170??cm?? WT:??91.6??kg??(Dosing)?? BMI:??31.7?? Peripheral Pulse Rate: 82 bpm No qualifying data available. Weight (Lbs): 202 (06/05/24 14:11:00) Constitutional: alert, interactive, in no acute distress, well-nourished and well developed. Head and Face: the head and face were normal in appearance. Eyes: the sclera and?conjunctiva were normal,?pupils were equal in size, round, eyelids normal. ENT: the ears and nose were normal in appearance Neck: the appearance was normal, neck was supple, no palpable masses and no carotid bruit. Pulmonary: no respiratory distress, normal respiratory rhythm and effort and??clear bilateral breath sounds?_ Heart:??normal S1 and S2, heart rate and rhythm were normal, no gallops,??no murmurs, no pericardial rubs and edema was not present. Skin: Normal color and intact?without appreciable rash??or abnormal skin lesion,??skin turgor normal Psychiatric: oriented to person, place, and time, their affect was normal and the mood was normal, normal insight and judgement. Depression Screening Feeling Down, Depressed, Hopeless: Not at all (06/05/24 14:11:00) Little Interest - Pleasure in Activities: Not at all (06/05/24 14:11:00) Initial Depression Screen Score: 0 (06/05/24 14:11:00) Assessment/Plan 1.??Physical exam, pre-employment??(Z02.1) ??Benign exam. He is able to tolerate??exercises as per fitness test. I signed??medical approval form.? 2.??Type 1 diabetes mellitus??(E10.9) ??Followed by [facility] in [place]. He is compliant with insulin pump. Last HbA1c was reportedly <7.0.?? Ordered: Comprehensive Metabolic Panel,Blood, Routine, 06/05/24, Once, Order for future visit, Adult generalmedical exam Type 1 diabetes Hyperlipidemia Hemoglobin A1c,Blood, Routine, 06/05/24, Once, Order for future visit, Adult general medical exam Type 1 diabetes ?? 3.??Hyperlipidemia??(E78.5) ??Was being followed by [facility] in [place]. He is compliant with statin therapy.?? Ordered: Comprehensive Metabolic Panel,Blood, Routine, 06/05/24, Once, Order for future visit, Adult generalmedical exam Type 1 diabetes Hyperlipidemia Lipid Panel,Blood, Routine, 06/05/24, Once, Order for future visit, Adult general medical exam Hyperlipidemia ?? No qualifying data available. Problem List/Past Medical History Ongoing Hyperlipidemia Type 1 diabetes mellitus Historical No qualifying data Medications Home atorvastatin 40 mg oral tablet, 40 mg= 1 tab, Oral, Daily HumaLOG Tempo Pen 100 units/mL injectable solution, 0-150,units, Daily Allergies No Known Medication Allergies Social History Tobacco Never smoker Immunizations No qualifying data available. Lab Results No qualifying data available. Electronically Signed on 06/05/24 03:38 PM Cyndy Lincoln PA-C Patient Care team information Care Team Personnel Name: Domenic Valdes MD Position: Physician - Primary Care Member Role: Primary Care Physician [address]: [address] [place] [address] Telecom: Care Team Related Persons Name: Lea Robles Insurance Providers Guarantor name: [employer] Health Plan Information #: 1 Payer: SELF PAY Member Number: NA Policy Number: NA Group Number: NA Health Plan Information #: 2 Payer: SELF PAY Member Number: NA Policy Number: NA Group Number: NA
--- OUTSIDE RECORDS SUMMARY | 2024-06-08 20:57 | XMS_ITS | Continuity of Care Document ---
Author Organization [facility] Cardiology [facility] Address [address] [place] [id number] Support Name Relationship Address Phone LORA BRIONES Personal Relationship Unknown Unav ailable Travis, Lea Other Unknown Unavailable Encounter Date(s): 06/30/24 - 06/02/24 [facility] Cardiology Services [address] [address] Attending Physician: RODERICK DALTON MD Encounter Type: Clinic Assessment and Plan Future Appointments Appointment Date:06/05/2024 02:20:00 PM Scheduled Provider:Cyndy Lincoln PA-C Location:[facility] Appointment Type:Physical 30 Min Appointment Date:06/08/2024 10:45:00 AM Scheduled Provider: Location:[facility] Appointment Type:Regular Stress Test Patient Care team information Care Team Related Persons Name: Lea Robles Insurance Providers Guarantor name: NA Health Plan Information #: 1 Payer: SELF PAY Member Number: NA Policy Number: NA Group Number: NA Health Plan Information #: 2 Payer: SELF PAY Member Number: NA Policy Number: NA Group Number: NA
[2024-06-08 21:02] VITALS: BP 119/80; PULSE 110; RESP 20; TEMP 36.8; O2SAT 97; BMI 30.4
--- NOTE | 2024-06-08 21:16 | ED_ITS ---
HPI - Extremity Problem General Chief complaint: Extremity Injury, Upper Stated complaint: ?Left Leg Infection Time Seen by Provider: 06/08/24 21:14 Source: patient Mode of arrival: ambulatory Limitations: no limitations History of Present Illness ED Provider: FRANKIE HPI Narrative: 34 yo male with PMH of IDDM s/p fall at work with injuries to R hand and abrasions to both knees on 05/28. He was seen at urgent care and they were happy with the knee abrasion. Today he started to note increased pain and feeling his L leg was tight. He took motrin 1 hour ago with some relief. The leg is more red and hot MD Complaint: extremity pain and extremity swelling Onset (ago): day(s) (1) Pain Consistency: constant Location: left and lower extremity Quality: burning and aching Radiation: none Relieving factors: rest Exacerbating factors: range of motion and palpation Associated symptoms: denies other symptoms Context: other (recent abrasion) Related Data Home Medications ?Medication ?Instructions ?Recorded ?Confirmed insulin lispro 100 unit/mL 0 - 130 unit subcut DAILY 12/02/21 12/02/21 subcutaneous solution (Humalog U-100 Insulin) Previous Rx's ?Medication ?Instructions ?Recorded ibuprofen 800 mg tablet 800 mg PO TID #30 tabs 05/29/24 Allergies Allergy/AdvReac Type Severity Reaction Status Date / Time No Known Allergies Allergy Verified 06/08/24 21:05 Review of Systems 2 Review of Systems: Constitutional : No Fever, No Chills ENT/Mouth : No sore throat, No Rhinorrhea Eyes: No Eye Pain, No Swelling, No Redness Cardiovascular : No Chest Pain, No SOB Respiratory : No Cough, No Sputum Gastrointestinal : No Nausea, No Vomiting, No Diarrhea, No abdominal Pain Genitourinary : No Dysuria, No Hematuria Musculoskeletal : No joint pain, No Myalgias, No Joint Swelling, pos leg pain Skin : No Skin Lesions, positive skin rash Neuro : No Weakness, No Numbness, No Headache Psych : No Anxiety, No Depression All other systems reviewed and are negative [facility] Past Medical History Attestation statement: The following information was validated with the patient. Source: old records reviewed Medical History Diabetes Social History Social History (Updated 06/08/24 @ 21:42 by Smita Delmont, DO) Patient Tobacco Use Status: Never used Tobacco Smoked in Last 30 Days: No Use of substances other than those prescribed or required for medical reasons: No Advance Directives: No Advance Directives Information Provided: No Physical Exam 2 Vital Signs: Vital Signs: Last Vital Signs Temp 98.5 F 06/08/24 22:53 Pulse 110 H 06/08/24 21:02 Resp 20 06/08/24 21:02 BP 125/74 06/08/24 22:53 Pulse Ox 97 06/08/24 21:02 O2 Del Method Room Air 06/08/24 21:02 BMI result Body Mass Index 30.4 Appearance: Alert. Oriented X3. No acute distress. Eyes: Pupils equal, round and reactive to light. ENT: Pharynx normal. Neck: Normal inspection. Neck supple. CVS: Normal heart rate and rhythm. Pulses normal. Respiratory: No respiratory distress. Breath sounds normal. Abdomen: Soft and non-tender. Skin: Skin warm and dry. Normal skin color. Normal skin turgor. Extremities: left leg hot to touch, abrasion on both knees no purulence no septic joint NV intact distally, leg is pink in color, there is no pitting edema Neuro: Oriented X 3. No motor deficit. No sensory deficit. Medications Administered Generic Name Dose Route Start Last Admin Trade Name Freq PRN Reason Stop Dose Admin Vancomycin HCl 2,000 mg in 500 mls @ 250 mls/hr 06/08/24 21:28 06/08/24 22:33 Vancomycin/Ns IV 06/08/24 23:27 250 mls/hr ONCE ONE Administration Discontinued Medications Generic Name Dose Route Start Last Admin Trade Name Freq PRN Reason Stop Dose Admin Piperacillin Sod/Tazobactam 50 mls @ 100 mls/hr 06/08/24 21:28 06/08/24 22:33 Sod 3.375 gm/ Sodium Chloride IV 06/08/24 21:57 Infused ONCE ONE Infusion Lactated Ringer's 1,000 mls @ 999 mls/hr 06/08/24 21:30 06/08/24 22:30 Lr IV 06/08/24 22:30 Infused .Q1H1M ONE Infusion Medical Decision Making Medical Decision Making MDM Narrative: 34 yo male with PMH of IDDM here with L leg swelling and pain/redness s/p abrasion and soft tissue injury on 05/28 at this time he will need labs, DVT study, lactic acid and cultures - start on IV zosyn and vancomycin. He appears to have cellulitis on exam. No signs of crepitus on exam to suggest nec fasciitis. Differential Diagnosis Differential Diagnoses: The differential diagnosis associated with the presentation includes cellulitis, DVT Admission/Observation Consideration of admission/observation: Escalation of care including admission/observation considered admit for IV abx Lab Data MDM Lab Attestation statement: I reviewed the patient's lab results. 06/08/24 21:39 06/08/24 21:39 Labs: Lab Results 06/08/24 Range/Units 21:39 WBC 17.3 H (4.8-10.8) X10*3/uL RBC 5.02 (4.60-5.80) X10*6/uL Hgb 16.0 (14.0-18.0) g/dl Hct 44.6 (42.0-52.0) % MCV 88.8 (80.0-98.0) fL MCH 31.9 (27.0-33.0) pg MCHC 35.9 (31.0-36.0) g/dl RDW 11.9 (11.0-16.0) % Plt Count 229 (160-400) X10*3/uL MPV 11.5 (9.4-12.4) fL Immature Gran % (Auto) 0.3 (0.0-0.4) % Neut % (Auto) 82.3 H (45-73) % Lymph % (Auto) 10.6 L (20-40) % [place] % (Auto) 6.3 (2-11) % Eos % (Auto) 0.3 (0-4) % Baso % (Auto) 0.2 (0-2) % Lymph # (Auto) 1.8 (1.2-4.9) X10*3/uL [place] # (Auto) 1.1 (0.1-1.2) X10*3/uL Eos # (Auto) 0.1 (0.0-0.4) X10*3/uL Baso # (Auto) 0.0 (0.0-0.2) X10*3/uL Abs Immat Gran (auto) 0.06 H (0.00-0.03) X10*3/uL Absolute Neuts (auto) 14.2 H (2.0-8.3) x10*3/uL Absolute Nucleated RBC 0.000 (0.0-0.012) X10*3/uL Nucleated RBC % (auto) 0.0 (0.0-0.2) /100WBC Sodium 139 (135-145) mmol/L Potassium 3.5 (3.3-5.1) mmol/L Chloride 108 (96-108) mmol/L Carbon Dioxide 21 L (22-29) mmol/L Anion Gap 14 (12-20) BUN 16 (9-16) mg/dL Creatinine 1.06 (0.5-1.4) mg/dL Estim Creat Clear Calc 109.4 Estimated GFR > 60 Random Glucose 219 H (60-115) mg/dL Lactic Acid 1.1 (0.5-2.0) mmol/L Calcium 9.8 (8.4-10.2) mg/dL Magnesium 1.7 (1.6-2.6) mg/dL Total Bilirubin 0.8 (0.0-1.0) mg/dL Direct Bilirubin 0.3 (0.0-0.5) mg/dL AST 23 (5-37) U/L ALT 33 (0-40) U/L Alkaline Phosphatase 94 (39-117) U/L Total Protein 7.6 (6.5-8.0) g/dL Albumin 4.7 (3.5-5.0) g/dL Lipase 8 (8-78) U/L Independent Interpretation I performed an independent interpretation of an: Plain X-Ray (normal ) and Ultrasound (no DVT) Radiology Impression Discussion of test interpretation with radiology: I have reviewed the radiologist's reading. External Record Review External record reviewed: Outpatient record Prescription Management I considered prescription management with: Pain Medication and Antibiotic Discharge Plan Discharge Clinical Impression: Elevated WBC count, Cellulitis Patient Disposition: Admitted As Inpatient Prescriptions: No Action insulin lispro [Humalog U-100 Insulin] 100 unit/mL solution 0 - 130 unit subcut DAILY ibuprofen 800 mg tablet 800 mg PO TID Qty: 30 0RF Print Language: Swedish
[2024-06-08 21:48] LABS: MANUAL DIFF FLAG NO
[2024-06-08 21:50] LABS: Basophils Percent Auto 0.2 % (0-2); Eosinophils Absolute Auto 0.1 X10*3/uL (0.0-0.4); Eosinophils Percent Auto 0.3 % (0-4); Hematocrit 44.6 % (42.0-52.0); Imm Gran Abs Auto 0.06 X10*3/uL (0.00-0.03); Imm Gran Pct Auto 0.3 % (0.0-0.4); Lymphocytes Absolute Auto 1.8 X10*3/uL (1.2-4.9); Lymphocytes Percent Auto 10.6 % (20-40); Mean Corpuscular HGB Conc 35.9 g/dl (31.0-36.0); Mean Corpuscular Hemoglobin 31.9 pg (27.0-33.0); Mean Corpuscular Volume 88.8 fL (80.0-98.0); Mean Platelet Volume 11.5 fL (9.4-12.4); Monocytes Absolute Auto 1.1 X10*3/uL (0.1-1.2); Monocytes Percent Auto 6.3 % (2-11); Neutrophils Absolute Auto 14.2 x10*3/uL (2.0-8.3); Neutrophils Percent Auto 82.3 % (45-73); Platelet Count 229 X10*3/uL (160-400); Red Blood Count 5.02 X10*6/uL (4.60-5.80); Red Cell Distribution Width 11.9 % (11.0-16.0); White Blood Count 17.3 X10*3/uL (4.8-10.8)
[2024-06-08] MEDS: Piperacillin Sodium/Tazobactam 3.375 GM in 0.9 % Sodium Chloride 50 ML IV (21:53)
[2024-06-08] MEDS: Lactated Ringers 1,000 ML 999 ML IV (21:54)
[2024-06-08 21:59] VITALS: BP 122/75; TEMP 36.9
[2024-06-08 22:04] LABS: Lactic Acid 1.1 mmol/L (0.5-2.0)
[2024-06-08 22:06] LABS: Alanine Aminotransferase 33 U/L (0-40); Albumin Level 4.7 g/dL (3.5-5.0); Alkaline Phosphatase 94 U/L (39-117); Anion Gap 14 (12-20); Aspartate Amino Transferase 23 U/L (5-37); Bilirubin Direct 0.3 mg/dL (0.0-0.5); Bilirubin Total 0.8 mg/dL (0.0-1.0); Blood Urea Nitrogen 16 mg/dL (9-16); Calcium 9.8 mg/dL (8.4-10.2); Carbon Dioxide 21 mmol/L (22-29); Chloride 108 mmol/L (96-108); Creatinine Clr Calc Pharmacy 109.4; Estimated Glomerular Filt Rate > 60; Glucose Random 219 mg/dL (60-115); Lipase 8 U/L (8-78); Magnesium 1.7 mg/dL (1.6-2.6); Potassium 3.5 mmol/L (3.3-5.1); Sodium 139 mmol/L (135-145); Total Protein 7.6 g/dL (6.5-8.0)
[2024-06-08] MEDS: vancomycin/NS 2,000 MG/500 ML PLAST..BAG 250 MG IV (22:33)
[2024-06-08 22:38] VITALS: BP 120/69; PULSE 88; RESP 16; TEMP 36.9; O2SAT 98
[2024-06-08 22:53] VITALS: BP 125/74; TEMP 36.9
--- NOTE | 2024-06-08 23:27 | P.HPHOSP_ITS ---
History of Present Illness Date of Service: 06/08/24 Chief Complaint: Leg infection This is a 34-year-old male with pertinent history of insulin-dependent diabetes mellitus who presents to the emergency department for concerns of left leg infection. Patient has bilateral knee abrasions due to work-related injury that occurred a week ago. He states the abrasions have been healing well with scab formation. On the day of presentation, he started having pain over his left lower extremity. Noticed associated erythema and warmth. States he noticed pus drainage and was feeling feverish throughout the day. No history of skin infection in the past. Has not tried oral antibiotics. No chest pain, palpitations, shortness of breath, abdominal pain, changes in urinary or bowel habits. In the emergency department, WBC found to be 17 and patient was tachycardic. Initiated on broad-spectrum IV antibiotics and given IV fluids Review of Systems 2 Constitutional: Constitutional: Reports chills and Reports fever(s) Cardiovascular: Cardiovascular: Reports no additional cardiovascular complaints Respiratory: Respiratory: Reports no additional respiratory complaints Gastrointestinal: Gastrointestinal: Reports no additional gastrointestinal complaints Genitourinary: Genitourinary: Reports no additional male genitourinary complaints [facility] Medical History Diabetes Pertinent family history: No family history of early CAD Social History Patient Tobacco Use Status: Never used Tobacco Smoked in Last 30 Days: No Use of substances other than those prescribed or required for medical reasons: No Advance Directives: No Advance Directives Information Provided: No Meds Allergies Allergy/AdvReac Type Severity Reaction Status Date / Time No Known Allergies Allergy Verified 06/08/24 21:05 Home Medications ?Medication ?Instructions ?Recorded ?Confirmed ?Last Taken ?Type insulin lispro 100 unit/mL 0 - 130 unit subcut DAILY 12/02/21 12/02/21 Unknown History subcutaneous solution (Humalog U-100 Insulin) Physical Exam 2 Vital Signs and Narrative: Vital Signs: Last Vital Signs Temp 98.5 F 06/08/24 22:53 Pulse 110 H 06/08/24 21:02 Resp 20 06/08/24 21:02 BP 125/74 06/08/24 22:53 Pulse Ox 97 06/08/24 21:02 O2 Del Method Room Air 06/08/24 21:02 BMI result Body Mass Index 30.4 Middle-aged male lying in bed in no distress Neck supple, no JVD Regular rate and rhythm, S1-S2 heard Regular breath sounds bilaterally, no wheezing or crackles appreciated Abdomen soft nontender, no guarding, no rigidity Patient is awake, alert and oriented to self, place, time and person ; no focal motor deficit Psych: Normal mood Left lower extremity with erythema, warmth, bilateral knee abrasion present with scab formation Results Labs 06/08/24 21:39 06/08/24 21:39 Labs: Laboratory Results - last 24 hr 06/08/24 21:39 MCV 88.8 MCH 31.9 MCHC 35.9 RDW 11.9 Plt Count 229 MPV 11.5 Immature Gran % (Auto) 0.3 Neut % (Auto) 82.3 H Lymph % (Auto) 10.6 L [place] % (Auto) 6.3 Eos % (Auto) 0.3 Baso % (Auto) 0.2 Lymph # (Auto) 1.8 [place] # (Auto) 1.1 Eos # (Auto) 0.1 Baso # (Auto) 0.0 Abs Immat Gran (auto) 0.06 H Absolute Neuts (auto) 14.2 H Absolute Nucleated RBC 0.000 Nucleated RBC % (auto) 0.0 Anion Gap 14 Estim Creat Clear Calc 109.4 Estimated GFR > 60 Random Glucose 219 H Lactic Acid 1.1 Calcium 9.8 Magnesium 1.7 Total Bilirubin 0.8 Direct Bilirubin 0.3 AST 23 ALT 33 Alkaline Phosphatase 94 Total Protein 7.6 Albumin 4.7 Lipase 8 Imaging Radiologist's Impressions: Impressions Venous Duplex 06/08/24 21:30 IMPRESSION: No evidence of deep venous thrombosis involving the left lower extremity. Electronically signed by: Franko Sharma MD 06/08/2024 11:16 PM [facility] Assessment and Plan (1) Cellulitis: Qualifiers: Laterality: left Site of cellulitis: extremity Site of cellulitis of extremity: lower extremity Qualified Code(s): L03.116 - Cellulitis of left lower limb Status: Acute Plan This is a 34-year-old male with pertinent history of insulin-dependent diabetes mellitus who presents to the emergency department for concerns of left leg infection #. Sepsis due to left lower extremity purulent cellulitis: Will admit patient with IV vancomycin. Monitor for improvement. Resuscitated with IV crystalloids. Lactic acid and blood culture obtained #. Insulin-dependent diabetes mellitus with hyperglycemia: Patient has Humalog insulin pump. Accu-Cheks with sliding scale insulin ordered. On high-intensity statin Med rec pending DVT prophylaxis: None. Low risk. Patient is ambulatory Full code Admit as inpatient and will require two night minimum hospital stay for IV antibiotics (as above), which is not possible in a lesser acute setting. Quality Stroke Does the patient have a stroke diagnosis?: No VTE Prior VTE?: No VTE Risk Level:: Medical - low VTE Device Contraindication: Treatment Not Indicated VTE Drug Contraindication: Treatment Not Indicated
[2024-06-09 04:22] LABS: MANUAL DIFF FLAG NO
[2024-06-09 04:23] LABS: Basophils Absolute Auto 0.1 X10*3/uL (0.0-0.2); Basophils Percent Auto 0.4 % (0-2); Eosinophils Absolute Auto 0.1 X10*3/uL (0.0-0.4); Eosinophils Percent Auto 0.5 % (0-4); Hematocrit 41.6 % (42.0-52.0); Hemoglobin 14.3 g/dl (14.0-18.0); Imm Gran Abs Auto 0.04 X10*3/uL (0.00-0.03); Imm Gran Pct Auto 0.3 % (0.0-0.4); Lymphocytes Absolute Auto 2.1 X10*3/uL (1.2-4.9); Lymphocytes Percent Auto 15.7 % (20-40); Mean Corpuscular HGB Conc 34.4 g/dl (31.0-36.0); Mean Corpuscular Hemoglobin 31.4 pg (27.0-33.0); Mean Corpuscular Volume 91.4 fL (80.0-98.0); Mean Platelet Volume 11.2 fL (9.4-12.4); Monocytes Absolute Auto 1.1 X10*3/uL (0.1-1.2); Monocytes Percent Auto 8.3 % (2-11); Neutrophils Absolute Auto 10.2 x10*3/uL (2.0-8.3); Neutrophils Percent Auto 74.8 % (45-73); Platelet Count 188 X10*3/uL (160-400); Red Blood Count 4.55 X10*6/uL (4.60-5.80); Red Cell Distribution Width 11.9 % (11.0-16.0); White Blood Count 13.6 X10*3/uL (4.8-10.8)
[2024-06-09 04:49] LABS: Anion Gap 13 (12-20); Blood Urea Nitrogen 16 mg/dL (9-16); Calcium 9.2 mg/dL (8.4-10.2); Carbon Dioxide 26 mmol/L (22-29); Chloride 109 mmol/L (96-108); Creatinine Clr Calc Pharmacy 118.3; Estimated Glomerular Filt Rate > 60; Glucose Random 87 mg/dL (60-115); Potassium 3.8 mmol/L (3.3-5.1); Sodium 144 mmol/L (135-145)
[2024-06-09 05:50] VITALS: BP 121/65; PULSE 74; RESP 15; TEMP 36.9; O2SAT 97
--- NOTE | 2024-06-09 06:38 | PHA.PROG ---
Admission Date/Time: June 08, 2024 23:16 Indication: Sepsis Weight in k.718 kg Serum Creatinine - Last 168 Hours 06/08/24 06/09/24 21:39 04:18 Creatinine 1.06 0.98 Estimated CrCl and GFR - Last 168 Hours 06/08/24 06/09/24 21:39 04:18 Estim Creat Clear Calc 109.4 118.3 Estimated GFR > 60 > 60 Vancomycin Loading Dose: 2,000 mg Current Vancomycin Dosing Regimen: 1,500mg Vancomycin Monitoring using AUC goal of 400 - 600 range with trough as surrogate marker: 589, predicted trough 17.9 Date and Time for next Vancomycin Level to be drawn: 06/10 @ 0800 Pharmacist Comments on Vancomycin Plan: Vancomycin dosing will take advantage of P[employer]stream as a clinical decision support tool that uses Bayesian modeling to calculate individual patient's pharmacokinetic parameters and forecast the patient's drug concentration time course with the target goal AUC 24 range of 400 - 600 mg/L/hr.
[2024-06-09 06:57] VITALS: BP 114/70; PULSE 80; RESP 16; TEMP 36.9; O2SAT 98
--- NOTE | 2024-06-09 07:05 | PC.NURSE ---
Pt manages own insulin pump, gives boluses as he eats. Order is in MAR to reflect that. Requesting stronger pain medicine for knee pain this morning, alerted provider. Awaiting orders
[2024-06-09 07:30] LABS: Glucose, Whole Blood 98 mg/dL (60-115)
[2024-06-09] MEDS: Subcutaneous Insulin Pump 1 EACH SUBCUT ×3 (07:57→19:57)
[2024-06-09] MEDS: oxyCODONE HCl Immed Release 5 MG TABLET PO ×3 (07:57→19:51)
[2024-06-09] MEDS: 0.9 % Sodium Chloride Flush 3 ML SYRINGE IVFLUSH ×3 (07:58→21:39)
[2024-06-09 08:00] VITALS: BP 109/66; PULSE 93; RESP 16; TEMP 36.8; O2SAT 95
[2024-06-09] MEDS: Piperacillin Sodium/Tazobactam 3.375 GM in 0.9 % Sodium Chloride 50 ML IV ×3 (08:28→19:40)
[2024-06-09] MEDS: Acetaminophen 325 MG TABLET 650 MG PO (08:45)
[2024-06-09 08:57] LABS: C Reactive Protein 1.71 mg/dL (< or = 0.50)
[2024-06-09 09:00] LABS: Estimated Average Glucose 186 mg/dL; Hemoglobin A1C 236.3385 umol/L; Hemoglobin A1c % 8.1 % (<6.0); Total Hemoglobin (HGBA1C) 3632.6382 umol/L
--- NOTE | 2024-06-09 09:44 | MHC.CM.PN ---
PATIENT LIVES IN A HOME ALONE. FUNCTIONALLY INDEPENDENT. EMPLOYED [employer]. DM SUPPLIES THROUGH [employer]. PCP MAXWELL MAHAJAN MD NO HCP. CM PROVIDED EDUCATION AND OFFERED ASSISTANCE. DP: GOAL IS HOME SELF CARE, FAMILY TO TRANSPORT. ? WOUND CLINIC. CM WILL CONTINUE TO FOLLOW.
--- NOTE | 2024-06-09 10:20 | PHA.MEDREC ---
Addendum entered by Farooq Bennett 06/09/24 10:24: Reviewed: to clarify, the insulin is a total daily of 150 units for the pump. Original Note: Pharmacy Consult ? Medication Reconciliation Pharmacy has completed the medication reconciliation. Spoke to patent to confirm med list. patient confirmed all his medications. Humalog is per sliding scale (pump) 0-150 units.
[2024-06-09] MEDS: vancomycin HCL 1,500 MG in 0.9 % Sodium Chloride 500 ML 333.33 MG IV ×2 (10:23→21:36)
[2024-06-09] MEDS: Ketorolac Tromethamine 15 MG/ML VIAL IVPUSH ×2 (11:01→17:19)
[2024-06-09 11:12] LABS: Glucose, Whole Blood 168 mg/dL (60-115)
--- NOTE | 2024-06-09 11:32 | HO.PM.IMPN ---
Subjective Subjective Date of Service: 06/09/24 Interval History: L>R knee redness/swelling/pain; no fever Review of Systems Review of Systems: Yes all other systems are reviewed and are negative Physical Exam Vital Signs: Vital Signs: Last Vital Signs Temp 98.3 F 06/09/24 08:00 Pulse 93 06/09/24 08:00 Resp 16 06/09/24 08:00 BP 109/66 06/09/24 08:00 Pulse Ox 95 06/09/24 08:00 O2 Del Method Room Air 06/09/24 08:00 BMI result Body Mass Index 30.4 Gen: in no acute distress HEENT: sclera anicteric, moist mucus membranes Neck: supple Lungs: clear to auscultation bilaterally Heart: regular rate and rhythm, no murmurs Abd: soft, non-tender, non-distended Ext: no edema Skin: dry crusting scabs on both knees, L knee with infrapatellar swelling + redness, no purulence, no joint effusion Neuro: alert and oriented x3, no focal findings Psych: appropriate affect Objective Data Active Medications Acetaminophen (Acetaminophen 325 Mg Tablet) 650 mg PO Q6H PRN PRN Reason: Pain, Mild (Pain Scale 1-3), fever or headache Last Admin: 06/09/24 08:45 Dose: 650 mg Documented By: MEGAN Atorvastatin Calcium (Atorvastatin Calcium 40 Mg Tablet) 40 mg PO DAILY [facility] Calcium Carbonate (Calcium Carbonate 750 Mg Tab.Chew) 750 mg PO Q4H PRN PRN Reason: Heartburn Glucose (Glucose Gel 15 Gm Gel..Gram.) 15 gm PO Q15M PRN; Protocol PRN Reason: per Hypoglycemia Standing Ord. Dextrose (D10) 250 mls @ 750 mls/hr IV Q15M PRN; Protocol PRN Reason: per Hypoglycemia Standing Ord. Vancomycin HCl 1,500 mg/ (Sodium Chloride) 500 mls @ 333.333 mls/hr IV Q12H [facility] Last Admin: 06/09/24 10:23 Dose: 333.33 mls/hr Documented By: LETA Piperacillin Sod/Tazobactam (Sod 3.375 gm/ Sodium Chloride) 50 mls @ 100 mls/hr IV Q6H [facility] Last Infusion: 06/09/24 09:13 Dose: Infused Documented By: LETA Insulin Pump (Subcutaneous Insulin Pump) 1 each SUBCUT QIDACHS [facility]; Protocol Last Admin: 06/09/24 11:17 Dose: 1 each Documented By: LETA Ketorolac Tromethamine (Ketorolac Tromethamine 15 Mg/Ml Vial) 15 mg IVPUSH Q6H [facility] Stop: 06/09/24 17:01 Last Admin: 06/09/24 11:01 Dose: 15 mg Documented By: LETA Magnesium Hydroxide (Milk Of Magnesia 30 Ml Oral.Susp) 30 ml PO DAILY PRN PRN Reason: Constipation Melatonin (Melatonin 3 Mg Tablet) 6 mg PO BEDTIME PRN PRN Reason: Insomnia Morphine Sulfate (Morphine Sulfate 2 Mg/Ml Cartridge) 2 mg IVPUSH Q4H PRN; Protocol PRN Reason: Pain, Severe (Pain Scale 7-10) Ondansetron HCl (Ondansetron Hcl 4 Mg/2 Ml Vial) 4 mg IVPUSH Q8H PRN PRN Reason: Nausea and Vomiting Oxycodone HCl (Oxycodone Hcl Immed Release 5 Mg Tablet) 5 mg PO Q4H PRN PRN Reason: Pain, Moderate(Pain Scale 4-6) Last Admin: 06/09/24 07:57 Dose: 5 mg Documented By: CLAUDIA Pharmacy Consult (Consult Rx Vancomycin Dosing) 1 each MISCELLANE DAILY PRN PRN Reason: Consult order Sodium Chloride (0.9 % Sodium Chloride Flush 3 Ml [facility]) [facility] Last Admin: 06/09/24 07:58 Dose: 3 ml Documented By: CLAUDIA Labs 06/09/24 04:18 06/09/24 04:18 Labs: Laboratory Results - last 24 hr 06/08/24 06/09/24 06/09/24 21:39 04:18 07:25 MCV 88.8 91.4 MCH 31.9 31.4 MCHC 35.9 34.4 RDW 11.9 11.9 Plt Count 229 188 MPV 11.5 11.2 Immature Gran % (Auto) 0.3 0.3 Neut % (Auto) 82.3 H 74.8 H Lymph % (Auto) 10.6 L 15.7 L [place] % (Auto) 6.3 8.3 Eos % (Auto) 0.3 0.5 Baso % (Auto) 0.2 0.4 Lymph # (Auto) 1.8 2.1 [place] # (Auto) 1.1 1.1 Eos # (Auto) 0.1 0.1 Baso # (Auto) 0.0 0.1 Abs Immat Gran (auto) 0.06 H 0.04 H Absolute Neuts (auto) 14.2 H 10.2 H Absolute Nucleated RBC 0.000 0.000 Nucleated RBC % (auto) 0.0 0.0 Anion Gap 14 13 Estim Creat Clear Calc 109.4 118.3 Estimated GFR > 60 > 60 POC Glucose 98 Random Glucose 219 H 87 Estimat Average Glucose 186 Hemoglobin A1c % 8.1 H Lactic Acid 1.1 Calcium 9.8 9.2 D Magnesium 1.7 Total Bilirubin 0.8 Direct Bilirubin 0.3 AST 23 ALT 33 Alkaline Phosphatase 94 C-Reactive Protein 1.71 H Total Protein 7.6 Albumin 4.7 Lipase 8 06/09/24 11:03 MCV MCH MCHC RDW Plt Count MPV Immature Gran % (Auto) Neut % (Auto) Lymph % (Auto) [place] % (Auto) Eos % (Auto) Baso % (Auto) Lymph # (Auto) [place] # (Auto) Eos # (Auto) Baso # (Auto) Abs Immat Gran (auto) Absolute Neuts (auto) Absolute Nucleated RBC Nucleated RBC % (auto) Anion Gap Estim Creat Clear Calc Estimated GFR POC Glucose 168 H Random Glucose Estimat Average Glucose Hemoglobin A1c % Lactic Acid Calcium Magnesium Total Bilirubin Direct Bilirubin AST ALT Alkaline Phosphatase C-Reactive Protein Total Protein Albumin Lipase Impressions Venous Duplex 06/08/24 21:30 IMPRESSION: No evidence of deep venous thrombosis involving the left lower extremity. 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 Quality Stroke Does the patient have a stroke diagnosis?: No VTE Prior VTE?: No VTE Risk Level:: Medical - low VTE Device Contraindication: Treatment Not Indicated VTE Drug Contraindication: Treatment Not Indicated
[2024-06-09 15:09] VITALS: BP 110/63; PULSE 82; RESP 18; TEMP 37.2; O2SAT 97
[2024-06-09 16:17] LABS: Glucose, Whole Blood 69 mg/dL (60-115)
[2024-06-09 19:30] VITALS: BP 102/53; PULSE 95; RESP 20; TEMP 36.8; O2SAT 95
[2024-06-09 20:00] LABS: Glucose, Whole Blood 181 mg/dL (60-115)
[2024-06-10] VITALS: BP 121/68; PULSE 96; RESP 18; TEMP 37; O2SAT 98
[2024-06-10] MEDS: Piperacillin Sodium/Tazobactam 3.375 GM in 0.9 % Sodium Chloride 50 ML IV ×4 (02:49→20:10)
[2024-06-10] MEDS: Acetaminophen 325 MG TABLET 650 MG PO ×3 (03:25→19:38)
[2024-06-10 07:40] VITALS: BP 113/59; PULSE 68; RESP 16; TEMP 36.7; O2SAT 96
[2024-06-10 07:48] LABS: Glucose, Whole Blood 96 mg/dL (60-115)
[2024-06-10] MEDS: Atorvastatin Calcium 40 MG TABLET PO (07:48)
[2024-06-10] MEDS: oxyCODONE HCl Immed Release 5 MG TABLET PO ×3 (07:49→20:09)
[2024-06-10] MEDS: 0.9 % Sodium Chloride Flush 3 ML SYRINGE IVFLUSH (07:51)
[2024-06-10 08:08] LABS: Hematocrit 41.6 % (42.0-52.0); Hemoglobin 14.3 g/dl (14.0-18.0); Mean Corpuscular HGB Conc 34.4 g/dl (31.0-36.0); Mean Corpuscular Hemoglobin 31.8 pg (27.0-33.0); Mean Corpuscular Volume 92.7 fL (80.0-98.0); Mean Platelet Volume 11.5 fL (9.4-12.4); Platelet Count 182 X10*3/uL (160-400); Red Blood Count 4.49 X10*6/uL (4.60-5.80); Red Cell Distribution Width 11.9 % (11.0-16.0); White Blood Count 10.8 X10*3/uL (4.8-10.8)
[2024-06-10 08:20] LABS: Vancomycin Trough 8.8 mcg/mL (10.0-20.0)
[2024-06-10 08:21] LABS: Anion Gap 9 (12-20); Blood Urea Nitrogen 8 mg/dL (9-16); Carbon Dioxide 28 mmol/L (22-29); Chloride 109 mmol/L (96-108); Estimated Glomerular Filt Rate > 60; Glucose Random 105 mg/dL (60-115); Sodium 142 mmol/L (135-145)
--- NOTE | 2024-06-10 08:31 | HE.PHANOTE ---
RE: VANCO DOSING Trough came back as 8.8 mg/L. Dose is increased to 1500 mg q8h, next trough is due @0700 06/11/24.
[2024-06-10] MEDS: vancomycin HCL 1,500 MG in 0.9 % Sodium Chloride 500 ML 333.33 MG IV ×2 (09:47→17:16)
[2024-06-10] MEDS: Sennosides/Docusate Sodium TABLET 2 TAB PO (09:48)
--- NOTE | 2024-06-10 10:56 | HO.PM.IMPN ---
Subjective Subjective Date of Service: 06/10/24 Interval History: no improvement in pain/redness/swelling of L knee Review of Systems Review of Systems: Yes all other systems are reviewed and are negative Physical Exam Vital Signs: Vital Signs: Last Vital Signs Temp 98.1 F 06/10/24 07:40 Pulse 68 06/10/24 07:40 Resp 16 06/10/24 07:40 BP 113/59 L 06/10/24 07:40 Pulse Ox 96 06/10/24 07:40 O2 Del Method Room Air 06/10/24 07:40 BMI result Body Mass Index 30.4 Gen: in no acute distress HEENT: sclera anicteric, moist mucus membranes Neck: supple Lungs: clear to auscultation bilaterally Heart: regular rate and rhythm, no murmurs Abd: soft, non-tender, non-distended Ext: no edema Skin: dry crusting scabs on both knees, L knee with infrapatellar swelling + redness, no purulence Neuro: alert and oriented x3, no focal findings Psych: appropriate affect Objective Data Active Medications Acetaminophen (Acetaminophen 325 Mg Tablet) 650 mg PO Q6H PRN PRN Reason: Pain, Mild (Pain Scale 1-3), fever or headache Last Admin: 06/10/24 03:25 Dose: 650 mg Documented By: REINA Atorvastatin Calcium (Atorvastatin Calcium 40 Mg Tablet) 40 mg PO DAILY [facility] Last Admin: 06/10/24 07:48 Dose: 40 mg Documented By: MARIAM Calcium Carbonate (Calcium Carbonate 750 Mg Tab.Chew) 750 mg PO Q4H PRN PRN Reason: Heartburn Glucose (Glucose Gel 15 Gm Gel..Gram.) 15 gm PO Q15M PRN; Protocol PRN Reason: per Hypoglycemia Standing Ord. Dextrose (D10) 250 mls @ 750 mls/hr IV Q15M PRN; Protocol PRN Reason: per Hypoglycemia Standing Ord. Piperacillin Sod/Tazobactam (Sod 3.375 gm/ Sodium Chloride) 50 mls @ 100 mls/hr IV Q6H [facility] [place] Last Infusion: 06/10/24 08:40 Dose: Infused Documented By: MARIAM Vancomycin HCl 1,500 mg/ (Sodium Chloride) 500 mls @ 333.333 mls/hr IV Q8H [facility] [place] Last Admin: 06/10/24 09:47 Dose: 333.33 mls/hr Documented By: MARIAM Clindamycin Phosphate (Cleocin) 600 mg in 50 mls @ 100 mls/hr IV Q8H [facility] [place] Insulin Pump (Subcutaneous Insulin Pump) 1 each SUBCUT QIDACHS [facility]; Protocol Last Admin: 06/10/24 08:30 Dose: Not Given Documented By: MARIAM Non-Admin Reason: pt own insulin pump Magnesium Hydroxide (Milk Of Magnesia 30 Ml Oral.Susp) 30 ml PO DAILY PRN PRN Reason: Constipation Melatonin (Melatonin 3 Mg Tablet) 6 mg PO BEDTIME PRN PRN Reason: Insomnia Morphine Sulfate (Morphine Sulfate 2 Mg/Ml Cartridge) 2 mg IVPUSH Q4H PRN; Protocol PRN Reason: Pain, Severe (Pain Scale 7-10) Ondansetron HCl (Ondansetron Hcl 4 Mg/2 Ml Vial) 4 mg IVPUSH Q8H PRN PRN Reason: Nausea and Vomiting Oxycodone HCl (Oxycodone Hcl Immed Release 5 Mg Tablet) 5 mg PO Q4H PRN PRN Reason: Pain, Moderate(Pain Scale 4-6) Last Admin: 06/10/24 07:49 Dose: 5 mg Documented By: MARIAM Pharmacy Consult (Consult Rx Vancomycin Dosing) 1 each MISCELLANE DAILY PRN PRN Reason: Consult order Senna/Docusate Sodium (Sennosides/Docusate Sodium Tablet) 2 tab PO BID [facility] [place] Last Admin: 06/10/24 09:48 Dose: 2 tab Documented By: MARIAM Sodium Chloride (0.9 % Sodium Chloride Flush 3 Ml Syringe) 3 ml IVFLUSH QSHIFT [facility] [place] Last Admin: 06/10/24 07:51 Dose: 3 ml Documented By: MARIAM Labs 06/10/24 07:58 06/10/24 07:58 Labs: Laboratory Results - last 24 hr 06/09/24 06/09/24 06/09/24 11:03 16:13 19:45 MCV MCH MCHC RDW Plt Count MPV Absolute Nucleated RBC Nucleated RBC % (auto) Anion Gap Estim Creat Clear Calc Estimated GFR POC Glucose 168 H 69 181 H Random Glucose Calcium Vancomycin Trough 06/10/24 06/10/24 07:43 07:58 MCV 92.7 MCH 31.8 MCHC 34.4 RDW 11.9 Plt Count 182 MPV 11.5 Absolute Nucleated RBC 0.000 Nucleated RBC % (auto) 0.0 Anion Gap 9 L Estim Creat Clear Calc 126.0 Estimated GFR > 60 POC Glucose 96 Random Glucose 105 Calcium 9.0 Vancomycin Trough 8.8 L Microbiology Microbiology Results: Microbiology 06/08/24 21:39 Blood Culture - Preliminary Blood - Venous No growth after 24 hours. 06/08/24 21:42 Blood Culture - Preliminary Blood - Venous No growth after 24 hours. 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 Quality Stroke Does the patient have a stroke diagnosis?: No VTE Prior VTE?: No VTE Risk Level:: Medical - low VTE Device Contraindication: Treatment Not Indicated VTE Drug Contraindication: Treatment Not Indicated
[2024-06-10 11:36] LABS: Glucose, Whole Blood 111 mg/dL (60-115)
[2024-06-10] MEDS: iohexoL 350 MG/ML 100 ML INFUS..BTL IV (12:41)
[2024-06-10] MEDS: Clindamycin Phosphate/D5W 600 MG/50 ML PIGGYBACK 100 MG IV ×2 (13:03→19:30)
[2024-06-10 16:52] LABS: Glucose, Whole Blood 57 mg/dL (60-115)
[2024-06-10 20:28] LABS: Glucose, Whole Blood 243 mg/dL (60-115)
[2024-06-10] MEDS: Subcutaneous Insulin Pump 1 EACH SUBCUT (21:04)
[2024-06-10 23:18] VITALS: BP 105/55; PULSE 78; RESP 18; TEMP 36.8; O2SAT 96
[2024-06-11] MEDS: vancomycin HCL 1,500 MG in 0.9 % Sodium Chloride 500 ML 333.33 MG IV ×2 (01:05→14:00)
[2024-06-11] MEDS: 0.9 % Sodium Chloride Flush 3 ML SYRINGE IVFLUSH ×3 (01:08→23:40)
[2024-06-11] MEDS: Piperacillin Sodium/Tazobactam 3.375 GM in 0.9 % Sodium Chloride 50 ML IV ×2 (02:42→08:30)
[2024-06-11] MEDS: Clindamycin Phosphate/D5W 600 MG/50 ML PIGGYBACK 100 MG IV ×2 (03:18→13:08)
[2024-06-11 07:24] LABS: Vancomycin Random 22.3 mcg/mL (15-20)
[2024-06-11 07:25] LABS: C Reactive Protein 9.35 mg/dL (< or = 0.50); Creatinine Clr Calc Pharmacy 99.1; Estimated Glomerular Filt Rate > 60
--- NOTE | 2024-06-11 07:39 | HE.PHANOTE ---
RE: VANCO DOSING Trough came back as 22.3 mg/L (predicted to be 16.5 mg/L). Dose is decreased to 1500 mg q12h, next trough is @1100 on 06/12/24.
[2024-06-11 07:40] VITALS: BP 120/74; PULSE 80; RESP 18; TEMP 37.1; O2SAT 96
[2024-06-11 07:44] LABS: Glucose, Whole Blood 178 mg/dL (60-115)
[2024-06-11] MEDS: Atorvastatin Calcium 40 MG TABLET PO (08:30)
[2024-06-11] MEDS: Sennosides/Docusate Sodium TABLET 2 TAB PO (08:31)
[2024-06-11] MEDS: Acetaminophen 325 MG TABLET 650 MG PO ×2 (09:08→18:25)
[2024-06-11 09:38] LABS: Alanine Aminotransferase 22 U/L (0-40); Albumin Level 3.8 g/dL (3.5-5.0); Alkaline Phosphatase 77 U/L (39-117); Aspartate Amino Transferase 15 U/L (5-37); Bilirubin Direct 0.3 mg/dL (0.0-0.5); Bilirubin Total 0.9 mg/dL (0.0-1.0); Total Protein 6.3 g/dL (6.5-8.0)
[2024-06-11 11:30] LABS: Glucose, Whole Blood 223 mg/dL (60-115)
--- NOTE | 2024-06-11 11:46 | P.CONOP_ITS ---
History of Present Illness HPI Consult date: 06/11/24 Chief complaint: Leg Infection Narrative: This is a 34-year-old male with pertinent history of insulin-dependent diabetes mellitus admitted to the medical service for left leg cellulitis. Patient has bilateral knee abrasions due to work-related injury that occurred a week ago. He states the abrasions have been healing well with scab formation. On the day of presentation in the ED, he started having pain over his left lower extremity. Noticed associated erythema and warmth. States he noticed pus drainage and was feeling feverish throughout the day. No history of skin infection in the past. Has not tried oral antibiotics. In the emergency department, WBC found to be 17 and patient was tachycardic. Initiated on broad-spectrum IV antibiotics and given IV fluids Orthopedics consulted for further recommendations as CT scan showed: CT knee LT w IV con FINDINGS: Skin wound or laceration anterior to the proximal tibia with prominent subcutaneous edema although no peripherally enhancing collection to indicate an abscess. Inflammatory stranding extends to the underlying tibial tubercle and patella tendon. No cortical erosion or obvious tendon tear. There is a small enthesophyte of the tibial tubercle. There is no joint effusion. No acute osseous abnormality. No significant degenerative findings. No radiopaque foreign body. IMPRESSION: Skin wound or laceration anterior to the proximal tibia with prominent subcutaneous edema/cellulitis. No abscess. No joint effusion. No acute osseous abnormality. Review of Systems 2 Review of Systems: Yes all other systems are reviewed and are negative [facility] Past Medical History Medical History Diabetes Social History Social History Household Members: Other Household Members Other:: GF Housing: House Do you presently have visiting nurse or other home services: No Patient Tobacco Use Status: Never used Tobacco service: No Meds Allergies Allergy/AdvReac Type Severity Reaction Status Date / Time No Known Allergies Allergy Verified 06/08/24 21:05 Active Medications: Current Medications Acetaminophen (Acetaminophen 325 Mg Tablet) 650 mg PO Q6H PRN PRN Reason: Pain, Mild (Pain Scale 1-3), fever or headache Last Admin: 06/11/24 09:08 Dose: 650 mg Atorvastatin Calcium (Atorvastatin Calcium 40 Mg Tablet) 40 mg PO DAILY [facility] Last Admin: 06/11/24 08:30 Dose: 40 mg Calcium Carbonate (Calcium Carbonate 750 Mg Tab.Chew) 750 mg PO Q4H PRN PRN Reason: Heartburn Glucose (Glucose Gel 15 Gm Gel..Gram.) 15 gm PO Q15M PRN; Protocol PRN Reason: per Hypoglycemia Standing Ord. Dextrose (D10) 250 mls @ 750 mls/hr IV Q15M PRN; Protocol PRN Reason: per Hypoglycemia Standing Ord. Piperacillin Sod/Tazobactam (Sod 3.375 gm/ Sodium Chloride) 50 mls @ 100 mls/hr IV Q6H [facility] Last Infusion: 06/11/24 09:09 Dose: Infused Clindamycin Phosphate (Cleocin) 600 mg in 50 mls @ 100 mls/hr IV Q8H [facility] Last Infusion: 06/11/24 03:51 Dose: Infused Vancomycin HCl 1,500 mg/ (Sodium Chloride) 500 mls @ 333.333 mls/hr IV Q12H [facility] Insulin Pump (Subcutaneous Insulin Pump) 1 each SUBCUT QIDACHS [facility]; Protocol Last Admin: 06/11/24 08:28 Dose: Not Given Magnesium Hydroxide (Milk Of Magnesia 30 Ml Oral.Susp) 30 ml PO DAILY PRN PRN Reason: Constipation Melatonin (Melatonin 3 Mg Tablet) 6 mg PO BEDTIME PRN PRN Reason: Insomnia Morphine Sulfate (Morphine Sulfate 2 Mg/Ml Cartridge) 2 mg IVPUSH Q4H PRN; Protocol PRN Reason: Pain, Severe (Pain Scale 7-10) Ondansetron HCl (Ondansetron Hcl 4 Mg/2 Ml Vial) 4 mg IVPUSH Q8H PRN PRN Reason: Nausea and Vomiting Oxycodone HCl (Oxycodone Hcl Immed Release 5 Mg Tablet) 5 mg PO Q4H PRN PRN Reason: Pain, Moderate(Pain Scale 4-6) Last Admin: 06/10/24 20:09 Dose: 5 mg Pharmacy Consult (Consult Rx Vancomycin Dosing) 1 each MISCELLANE DAILY PRN PRN Reason: Consult order Senna/Docusate Sodium (Sennosides/Docusate Sodium Tablet) 2 tab PO BID [facility] Last Admin: 06/11/24 08:31 Dose: 2 tab Sodium Chloride (0.9 % Sodium Chloride Flush 3 Ml Syringe) 3 ml IVFLUSH QSHIFT [facility] Last Admin: 06/11/24 08:29 Dose: 3 ml Home Medications ?Medication ?Instructions ?Recorded ?Confirmed ?Last Taken ?Type atorvastatin 40 mg tablet 40 mg PO DAILY 06/09/24 06/09/24 06/08/24 History ibuprofen 800 mg tablet 800 mg PO TID PRN Pain 06/09/24 06/09/24 06/08/24 History insulin lispro 100 unit/mL 0 - 150 unit subcut DAILY 06/09/24 06/09/24 06/08/24 History subcutaneous solution (Humalog U-100 Insulin) Physical Exam 2 Vital Signs: Vital Signs: Last Vital Signs Temp 98.7 F 06/11/24 07:40 Pulse 80 06/11/24 07:40 Resp 18 06/11/24 07:40 BP 120/74 06/11/24 07:40 Pulse Ox 96 06/11/24 07:40 O2 Del Method Room Air 06/11/24 07:40 BMI result Body Mass Index 30.4 Const: General: cooperative and no acute distress O rientation/consciousness: patient oriented x3 Resp: Effort & Inspection: normal respiratory effort and able to speak in complete sentences Cardio: Peripheral pulses: Peripheral pulses 2+ throughout Neuro: General: patient oriented x3 Extrem: Other: Left knee with scab over the tibial tubercle Trace erythema around the scab scant redness throughout the lower extremity No tenderness along the calf NVI No purulance No evidence of joint infection Results Labs 06/10/24 07:58 06/11/24 06:55 Labs: Abnormal lab results 06/10/24 06/10/24 06/11/24 Range/Units 16:47 20:20 06:55 POC Glucose 57 L* 243 H (60-115) mg/dL Total Creatine Kinase 34 L (38-174) U/L C-Reactive Protein 9.35 H (< or = 0.50) mg/dL Total Protein 6.3 L (6.5-8.0) g/dL Random Vancomycin 22.3 H (15-20) mcg/mL 06/11/24 06/11/24 Range/Units 07:39 11:23 POC Glucose 178 H 223 H (60-115) mg/dL Total Creatine Kinase (38-174) U/L C-Reactive Protein (< or = 0.50) mg/dL Total Protein (6.5-8.0) g/dL Random Vancomycin (15-20) mcg/mL H & H 06/08/24 06/09/24 06/10/24 Range/Units 21:39 04:18 07:58 Hgb 16.0 14.3 14.3 (14.0-18.0) g/dl Hct 44.6 41.6 L 41.6 L (42.0-52.0) % All other labs normal. Assessment and Plan (1) Cellulitis: Qualifiers: Laterality: left Site of cellulitis: extremity Site of cellulitis of extremity: lower extremity Qualified Code(s): L03.116 - Cellulitis of left lower limb Status: Acute Plan Left knee cellulitis No orthopedic intervention warranted continue symptomatic treatment for cellulitis per medical team Procedures Date of Service Date of Service: 06/11/24
--- NOTE | 2024-06-11 12:05 | HO.PM.IMPN ---
Subjective Subjective Date of Service: 06/11/24 Interval History: c/o ongoing severe pain of L knee, limited flexion redness not any improved, warmth and pinkness streaking inferiorly Review of Systems Review of Systems: Yes all other systems are reviewed and are negative Physical Exam Vital Signs: Vital Signs: Last Vital Signs Temp 98.7 F 06/11/24 07:40 Pulse 80 06/11/24 07:40 Resp 18 06/11/24 07:40 BP 120/74 06/11/24 07:40 Pulse Ox 96 06/11/24 07:40 O2 Del Method Room Air 06/11/24 07:40 BMI result Body Mass Index 30.4 Gen: in no acute distress HEENT: sclera anicteric, moist mucus membranes Neck: supple Lungs: clear to auscultation bilaterally Heart: regular rate and rhythm, no murmurs Abd: soft, non-tender, non-distended Ext: no edema Skin: dry crusting scabs on both knees, L knee with infrapatellar swelling + redness, faint erythema extending inferiorly anteriorly, no purulence Neuro: alert and oriented x3, no focal findings Psych: appropriate affect Objective Data Active Medications Acetaminophen (Acetaminophen 325 Mg Tablet) 650 mg PO Q6H PRN PRN Reason: Pain, Mild (Pain Scale 1-3), fever or headache Last Admin: 06/11/24 09:08 Dose: 650 mg Documented By: MARIAM Atorvastatin Calcium (Atorvastatin Calcium 40 Mg Tablet) 40 mg PO DAILY [facility] Last Admin: 06/11/24 08:30 Dose: 40 mg Documented By: MARIAM Calcium Carbonate (Calcium Carbonate 750 Mg Tab.Chew) 750 mg PO Q4H PRN PRN Reason: Heartburn Glucose (Glucose Gel 15 Gm Gel..Gram.) 15 gm PO Q15M PRN; Protocol PRN Reason: per Hypoglycemia Standing Ord. Dextrose (D10) 250 mls @ 750 mls/hr IV Q15M PRN; Protocol PRN Reason: per Hypoglycemia Standing Ord. Piperacillin Sod/Tazobactam (Sod 3.375 gm/ Sodium Chloride) 50 mls @ 100 mls/hr IV Q6H [facility] Last Infusion: 06/11/24 09:09 Dose: Infused Documented By: MARIAM Clindamycin Phosphate (Cleocin) 600 mg in 50 mls @ 100 mls/hr IV Q8H [facility] Last Infusion: 06/11/24 03:51 Dose: Infused Documented By: REINA Vancomycin HCl 1,500 mg/ (Sodium Chloride) 500 mls @ 333.333 mls/hr IV Q12H [facility] Insulin Pump (Subcutaneous Insulin Pump) 1 each SUBCUT QIDACHS [facility]; Protocol Last Admin: 06/11/24 08:28 Dose: Not Given Documented By: MARIAM Non-Admin Reason: pt own insuln pump Magnesium Hydroxide (Milk Of Magnesia 30 Ml Oral.Susp) 30 ml PO DAILY PRN PRN Reason: Constipation Melatonin (Melatonin 3 Mg Tablet) 6 mg PO BEDTIME PRN PRN Reason: Insomnia Morphine Sulfate (Morphine Sulfate 2 Mg/Ml Cartridge) 2 mg IVPUSH Q4H PRN; Protocol PRN Reason: Pain, Severe (Pain Scale 7-10) Ondansetron HCl (Ondansetron Hcl 4 Mg/2 Ml Vial) 4 mg IVPUSH Q8H PRN PRN Reason: Nausea and Vomiting Oxycodone HCl (Oxycodone Hcl Immed Release 5 Mg Tablet) 5 mg PO Q4H PRN PRN Reason: Pain, Moderate(Pain Scale 4-6) Last Admin: 06/10/24 20:09 Dose: 5 mg Documented By: REINA Pharmacy Consult (Consult Rx Vancomycin Dosing) 1 each MISCELLANE DAILY PRN PRN Reason: Consult order Senna/Docusate Sodium (Sennosides/Docusate Sodium Tablet) 2 tab PO BID [facility] Last Admin: 06/11/24 08:31 Dose: 2 tab Documented By: MARIAM Sodium Chloride (0.9 % Sodium Chloride Flush 3 Ml Syringe) 3 ml IVFLUSH QSHIFT [facility] Last Admin: 06/11/24 08:29 Dose: 3 ml Documented By: MARIAM Labs 06/10/24 07:58 06/11/24 06:55 Labs: Laboratory Results - last 24 hr 06/10/24 06/10/24 06/11/24 16:47 20:20 06:55 Hold Purple Top SEE NOTE Estim Creat Clear Calc 99.1 Estimated GFR > 60 POC Glucose 57 L* 243 H Total Bilirubin 0.9 Direct Bilirubin 0.3 AST 15 ALT 22 Alkaline Phosphatase 77 Total Creatine Kinase 34 L C-Reactive Protein 9.35 H Total Protein 6.3 L Albumin 3.8 Random Vancomycin 22.3 H 06/11/24 06/11/24 07:39 11:23 Hold Purple Top Estim Creat Clear Calc Estimated GFR POC Glucose 178 H 223 H Total Bilirubin Direct Bilirubin AST ALT Alkaline Phosphatase Total Creatine Kinase C-Reactive Protein Total Protein Albumin Random Vancomycin ITS Impressions Venous Duplex 06/08/24 21:30 IMPRESSION: No evidence of deep venous thrombosis involving the left lower extremity. Electronically signed by: Franko Sharma MD 06/08/2024 11:16 PM EST RP Knee X-Ray 06/08/24 22:00 IMPRESSION: No significant abnormality identified Electronically signed by: Franko Sharma MD 06/08/2024 11:33 PM EST RP Knee CT 06/10/24 12:29 IMPRESSION: Skin wound or laceration anterior to the proximal tibia with prominent subcutaneous edema/cellulitis. No abscess. No joint effusion. No acute osseous abnormality. Electronically signed by: Riley Neal MD 06/10/2024 02:24 PM EST RP Microbiology Microbiology Results: Microbiology 06/08/24 21:42 Blood Culture - Preliminary Blood - Venous No growth after 48 hours. 06/08/24 21:39 Blood Culture - Preliminary Blood - Venous No growth after 48 hours. 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 Quality Stroke Does the patient have a stroke diagnosis?: No VTE Prior VTE?: No VTE Risk Level:: Medical - low VTE Device Contraindication: Treatment Not Indicated VTE Drug Contraindication: Treatment Not Indicated
[2024-06-11] MEDS: gadobutroL 10 ML VIAL IVPUSH (12:31)
[2024-06-11 15:35] VITALS: BP 128/70; PULSE 75; RESP 18; TEMP 36.1; O2SAT 96
[2024-06-11 16:22] LABS: Glucose, Whole Blood 130 mg/dL (60-115)
[2024-06-11] MEDS: levoFLOXacin/D5W 750 MG/150 ML PIGGYBACK 100 MG IV (16:25)
[2024-06-11] MEDS: Linezolid/D5W 600 MG/300 ML PIGGYBACK 300 MG IV (18:15)
[2024-06-11 19:51] LABS: Glucose, Whole Blood 232 mg/dL (60-115)
--- NOTE | 2024-06-11 22:32 | W.PM.IDCN ---
History of Present Illness Data of Consult Service Date: 06/11/24 Requesting physician: Kate Gutierrez Primary Care Provider: Jake Pascal MD [facility] Reason for consult: left knee cellulitis/abrasion He presents with right knee pain and swelling worsening. He is diabetic with glycohgb of 6.8. 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 He said he didnt get antibiotics but then did seek care because he couldnt bend knee and had pain and swelling at eschar site. He had elevated WBC of 17.3 on admission and some tachycardia. CT/MRI knee swelling and no OM. Orthopedics saw no need for acute intervention. Review of Systems Review of Systems: Yes all other systems are reviewed and are negative [facility] Past Medical History Medical History (Updated 06/11/24 @ 22:42 by Carol Salazar MD) Sepsis Diabetes Family History Family history: reviewed and not pertinent Social History Social History Household Members: Other Household Members Other:: GF Housing: House Do you presently have visiting nurse or other home services: No Patient Tobacco Use Status: Never used Tobacco service: No Meds Allergies Allergy/AdvReac Type Severity Reaction Status Date / Time No Known Allergies Allergy Verified 06/08/24 21:05 Active Medications: Current Medications Acetaminophen (Acetaminophen 325 Mg Tablet) 650 mg PO Q6H PRN PRN Reason: Pain, Mild (Pain Scale 1-3), fever or headache Last Admin: 06/11/24 18:25 Dose: 650 mg Atorvastatin Calcium (Atorvastatin Calcium 40 Mg Tablet) 40 mg PO DAILY [facility] Last Admin: 06/11/24 08:30 Dose: 40 mg Calcium Carbonate (Calcium Carbonate 750 Mg Tab.Chew) 750 mg PO Q4H PRN PRN Reason: Heartburn Glucose (Glucose Gel 15 Gm Gel..Gram.) 15 gm PO Q15M PRN; Protocol PRN Reason: per Hypoglycemia Standing Ord. Dextrose (D10) 250 mls @ 750 mls/hr IV Q15M PRN; Protocol PRN Reason: per Hypoglycemia Standing Ord. Linezolid (Zyvox/D5w) 600 mg in 300 mls @ 300 mls/hr IV Q12H [facility] Last Infusion: 06/11/24 19:20 Dose: Infused Levofloxacin (Levaquin) 750 mg in 150 mls @ 100 mls/hr IV Q24H [facility] Insulin Pump (Subcutaneous Insulin Pump) 1 each SUBCUT QIDACHS [facility]; Protocol Last Admin: 06/11/24 21:29 Dose: Not Given Magnesium Hydroxide (Milk Of Magnesia 30 Ml Oral.Susp) 30 ml PO DAILY PRN PRN Reason: Constipation Melatonin (Melatonin 3 Mg Tablet) 6 mg PO BEDTIME PRN PRN Reason: Insomnia Morphine Sulfate (Morphine Sulfate 2 Mg/Ml Cartridge) 2 mg IVPUSH Q4H PRN; Protocol PRN Reason: Pain, Severe (Pain Scale 7-10) Ondansetron HCl (Ondansetron Hcl 4 Mg/2 Ml Vial) 4 mg IVPUSH Q8H PRN PRN Reason: Nausea and Vomiting Oxycodone HCl (Oxycodone Hcl Immed Release 5 Mg Tablet) 5 mg PO Q4H PRN PRN Reason: Pain, Moderate(Pain Scale 4-6) Last Admin: 06/10/24 20:09 Dose: 5 mg Senna/Docusate Sodium (Sennosides/Docusate Sodium Tablet) 2 tab PO BID [facility] Last Admin: 06/11/24 21:24 Dose: Not Given Sodium Chloride (0.9 % Sodium Chloride Flush 3 Ml Syringe) [facility] Last Admin: 06/11/24 16:51 Dose: Not Given Home Medications ?Medication ?Instructions ?Recorded ?Confirmed ?Last Taken ?Type atorvastatin 40 mg tablet 40 mg PO DAILY 06/09/24 06/09/24 06/08/24 History ibuprofen 800 mg tablet 800 mg PO TID PRN Pain 06/09/24 06/09/24 06/08/24 History insulin lispro 100 unit/mL 0 - 150 unit subcut DAILY 06/09/24 06/09/24 06/08/24 History subcutaneous solution (Humalog U-100 Insulin) Physical Exam Vital Signs: Vital Signs: Last Vital Signs Temp 97 F 06/11/24 15:35 Pulse 75 06/11/24 15:35 Resp 18 06/11/24 15:35 BP 128/70 06/11/24 15:35 Pulse Ox 96 06/11/24 15:35 O2 Del Method Room Air 06/11/24 15:35 BMI result Body Mass Index 30.4 Const: General: cooperative HEENT: Head: Yes normal to inspection Face and sinus: Yes normal facial exam Mouth: Normal oral and palatal mucosa present Teeth and gingiva: dentition normal Eyes: General: appearance normal, both eyes and all related structures Pupils: Equal, round and reactive pupils present Resp: Effort & Inspection: normal respiratory effort Cardio: Rate: regular rate Rhythm: regular rhythm GI: Palpation (GI): Soft to palpation and nontender : General: Yes no CVA tenderness Back/Spine/Pelvis: Back: no CVA tenderness Skin: General skin exam: no rashes or lesions noted Neuro: General: moves all extremities Cranial nerves: Yes Equal, round and reactive pupils present Extrem: Other: swelling distal to patella with eschar and slight pink haze down leg General: Yes normal to inspection Psych: Appearance: grossly normal Results Labs 06/10/24 07:58 06/11/24 06:55 Labs: BMP 06/11/24 06:55 Creatinine 1.17 Cardiac Enzymes 06/11/24 Range/Units 06:55 Total Creatine Kinase 34 L (38-174) U/L Liver Function 06/11/24 Range/Units 06:55 Total Bilirubin 0.9 (0.0-1.0) mg/dL Direct Bilirubin 0.3 (0.0-0.5) mg/dL AST 15 (5-37) U/L ALT 22 (0-40) U/L Alkaline Phosphatase 77 (39-117) U/L Albumin 3.8 (3.5-5.0) g/dL Microbiology Microbiology Results: Microbiology 06/08/24 21:42 Blood - Venous Blood Culture - Preliminary No growth after 48 hours. 06/08/24 21:39 Blood - Venous Blood Culture - Preliminary No growth after 48 hours. Assessment and Plan (1) Cellulitis: Qualifiers: Laterality: left Site of cellulitis: extremity Site of cellulitis of extremity: lower extremity Qualified Code(s): L03.116 - Cellulitis of left lower limb Status: Acute (2) Elevated WBC count: Qualifiers: Leukocytosis type: unspecified Qualified Code(s): D72.829 - Elevated white blood cell count, unspecified Status: Acute (3) Sepsis: Status: Acute Plan Diabetic knee wound after fall hitting dirt Possible organisms include vibrio,staph,strep and anerobes and gram negative and possibly fungus after contact with ground He has sepsis with tachycardia to 105 and elevated WBC over 17,000 Would give po Levaquin and linezolid for seven days ,watch for side effects like rash or lack of continued improvement.
--- NOTE | 2024-06-11 22:47 | PM.EVENT ---
Event Note Date of Service: 06/11/24 Event Note: apparently UTD tetanus shot Time Spent With Patient Time: Total time managing care of this patient today ____ minutes.
[2024-06-11 23:48] VITALS: BP 122/73; PULSE 73; RESP 16; TEMP 36.7; O2SAT 97
[2024-06-12 05:57] LABS: MANUAL DIFF FLAG NO
[2024-06-12] MEDS: Linezolid/D5W 600 MG/300 ML PIGGYBACK 300 MG IV ×2 (06:09→18:26)
[2024-06-12 06:15] LABS: Basophils Percent Auto 0.4 % (0-2); Eosinophils Absolute Auto 0.3 X10*3/uL (0.0-0.4); Eosinophils Percent Auto 3.4 % (0-4); Hematocrit 40.5 % (42.0-52.0); Hemoglobin 13.4 g/dl (14.0-18.0); Imm Gran Abs Auto 0.03 X10*3/uL (0.00-0.03); Imm Gran Pct Auto 0.3 % (0.0-0.4); Lymphocytes Absolute Auto 2.1 X10*3/uL (1.2-4.9); Lymphocytes Percent Auto 23.6 % (20-40); Mean Corpuscular HGB Conc 33.1 g/dl (31.0-36.0); Mean Corpuscular Hemoglobin 31.2 pg (27.0-33.0); Mean Corpuscular Volume 94.4 fL (80.0-98.0); Mean Platelet Volume 11.6 fL (9.4-12.4); Monocytes Absolute Auto 0.7 X10*3/uL (0.1-1.2); Monocytes Percent Auto 7.4 % (2-11); Neutrophils Absolute Auto 5.9 x10*3/uL (2.0-8.3); Neutrophils Percent Auto 64.9 % (45-73); Platelet Count 208 X10*3/uL (160-400); Red Blood Count 4.29 X10*6/uL (4.60-5.80); Red Cell Distribution Width 11.9 % (11.0-16.0); White Blood Count 9.1 X10*3/uL (4.8-10.8)
[2024-06-12 06:16] LABS: Alanine Aminotransferase 20 U/L (0-40); Albumin Level 3.7 g/dL (3.5-5.0); Alkaline Phosphatase 74 U/L (39-117); Anion Gap 12 (12-20); Aspartate Amino Transferase 15 U/L (5-37); Bilirubin Total 0.8 mg/dL (0.0-1.0); Blood Urea Nitrogen 9 mg/dL (9-16); Calcium 9.3 mg/dL (8.4-10.2); Carbon Dioxide 28 mmol/L (22-29); Chloride 109 mmol/L (96-108); Creatinine Clr Calc Pharmacy 114.8; Estimated Glomerular Filt Rate > 60; Glucose Random 94 mg/dL (60-115); Sodium 145 mmol/L (135-145); Total Protein 6.4 g/dL (6.5-8.0)
[2024-06-12 07:16] VITALS: BP 123/74; PULSE 62; RESP 14; TEMP 36.9; O2SAT 96
[2024-06-12 07:34] LABS: Erythrocyte Sedimentation Rate 36 MM/HR (0-15)
[2024-06-12 07:42] LABS: Glucose, Whole Blood 160 mg/dL (60-115)
[2024-06-12] MEDS: Acetaminophen 325 MG TABLET 650 MG PO ×3 (07:54→20:08)
[2024-06-12] MEDS: Atorvastatin Calcium 40 MG TABLET PO (07:55)
[2024-06-12] MEDS: 0.9 % Sodium Chloride Flush 3 ML SYRINGE IVFLUSH ×3 (07:57→20:11)
--- NOTE | 2024-06-12 08:56 | HO.PM.IMPN ---
Subjective Subjective Date of Service: 06/12/24 Interval History: redness improved pain limits ROM no fever Review of Systems Review of Systems: Yes all other systems are reviewed and are negative Physical Exam Vital Signs: Vital Signs: Last Vital Signs Temp 98.4 F 06/12/24 07:16 Pulse 62 06/12/24 07:16 Resp 14 06/12/24 07:16 BP 123/74 06/12/24 07:16 Pulse Ox 96 06/12/24 07:16 O2 Del Method Room Air 06/12/24 07:16 BMI result Body Mass Index 30.4 Gen: in no acute distress HEENT: sclera anicteric, moist mucus membranes Neck: supple Lungs: clear to auscultation bilaterally Heart: regular rate and rhythm, no murmurs Abd: soft, non-tender, non-distended Ext: no edema Skin: dry crusting scabs on both R knee, L knee with eschar that is leaking some serous fluid, infrapatellar swelling + redness, faint erythema extending inferiorly anteriorly has resolved; no purulence or fluctuance noted Neuro: alert and oriented x3, no focal findings Psych: appropriate affect Objective Data Active Medications Acetaminophen (Acetaminophen 325 Mg Tablet) 650 mg PO Q6H PRN PRN Reason: Pain, Mild (Pain Scale 1-3), fever or headache Last Admin: 06/12/24 07:54 Dose: 650 mg Documented By: LEONELA Atorvastatin Calcium (Atorvastatin Calcium 40 Mg Tablet) 40 mg PO DAILY [facility] Last Admin: 06/12/24 07:55 Dose: 40 mg Documented By: LEONELA Calcium Carbonate (Calcium Carbonate 750 Mg Tab.Chew) 750 mg PO Q4H PRN PRN Reason: Heartburn Glucose (Glucose Gel 15 Gm Gel..Gram.) 15 gm PO Q15M PRN; Protocol PRN Reason: per Hypoglycemia Standing Ord. Dextrose (D10) 250 mls @ 750 mls/hr IV Q15M PRN; Protocol PRN Reason: per Hypoglycemia Standing Ord. Linezolid (Zyvox/D5w) 600 mg in 300 mls @ 300 mls/hr IV Q12H [facility] Last Infusion: 06/12/24 07:10 Dose: Infused Documented By: BREANN Levofloxacin (Levaquin) 750 mg in 150 mls @ 100 mls/hr IV Q24H [facility] Insulin Pump (Subcutaneous Insulin Pump) 1 each SUBCUT QIDACHS [facility]; Protocol Last Admin: 06/12/24 07:56 Dose: Not Given Documented By: LEONELA Non-Admin Reason: No Insulin Coverage Magnesium Hydroxide (Milk Of Magnesia 30 Ml Oral.Susp) 30 ml PO DAILY PRN PRN Reason: Constipation Melatonin (Melatonin 3 Mg Tablet) 6 mg PO BEDTIME PRN PRN Reason: Insomnia Morphine Sulfate (Morphine Sulfate 2 Mg/Ml Cartridge) 2 mg IVPUSH Q4H PRN; Protocol PRN Reason: Pain, Severe (Pain Scale 7-10) Ondansetron HCl (Ondansetron Hcl 4 Mg/2 Ml Vial) 4 mg IVPUSH Q8H PRN PRN Reason: Nausea and Vomiting Oxycodone HCl (Oxycodone Hcl Immed Release 5 Mg Tablet) 5 mg PO Q4H PRN PRN Reason: Pain, Moderate(Pain Scale 4-6) Last Admin: 06/10/24 20:09 Dose: 5 mg Documented By: REINA Senna/Docusate Sodium (Sennosides/Docusate Sodium Tablet) 2 tab PO BID [facility] Last Admin: 06/11/24 21:24 Dose: Not Given Documented By: BREANN Non-Admin Reason: PT DECLINED BMT Sodium Chloride (0.9 % Sodium Chloride Flush 3 Ml Syringe) 3 ml IVFLUSH QSHIFT [facility] Last Admin: 06/12/24 07:57 Dose: 3 ml Documented By: LEONELA Labs 06/12/24 05:34 06/12/24 05:34 Labs: Laboratory Results - last 24 hr 06/11/24 06/11/24 06/11/24 06:55 11:23 16:18 MCV MCH MCHC RDW Plt Count MPV Immature Gran % (Auto) Neut % (Auto) Lymph % (Auto) [place] % (Auto) Eos % (Auto) Baso % (Auto) Lymph # (Auto) [place] # (Auto) Eos # (Auto) Baso # (Auto) Abs Immat Gran (auto) Absolute Neuts (auto) Absolute Nucleated RBC Nucleated RBC % (auto) ESR Anion Gap Estim Creat Clear Calc Estimated GFR POC Glucose 223 H 130 H Random Glucose Calcium Total Bilirubin 0.9 Direct Bilirubin 0.3 AST 15 ALT 22 Alkaline Phosphatase 77 Total Creatine Kinase 34 L Total Protein 6.3 L Albumin 3.8 06/11/24 06/12/24 06/12/24 19:44 05:34 07:18 MCV 94.4 MCH 31.2 MCHC 33.1 RDW 11.9 Plt Count 208 MPV 11.6 Immature Gran % (Auto) 0.3 Neut % (Auto) 64.9 Lymph % (Auto) 23.6 [place] % (Auto) 7.4 Eos % (Auto) 3.4 Baso % (Auto) 0.4 Lymph # (Auto) 2.1 [place] # (Auto) 0.7 Eos # (Auto) 0.3 Baso # (Auto) 0.0 Abs Immat Gran (auto) 0.03 Absolute Neuts (auto) 5.9 Absolute Nucleated RBC 0.000 Nucleated RBC % (auto) 0.0 ESR 36 H Anion Gap 12 Estim Creat Clear Calc 114.8 Estimated GFR > 60 POC Glucose 232 H 160 H Random Glucose 94 Calcium 9.3 Total Bilirubin 0.8 Direct Bilirubin AST 15 ALT 20 Alkaline Phosphatase 74 Total Creatine Kinase Total Protein 6.4 L Albumin 3.7 Impressions Knee MRI 06/11/24 12:00 IMPRESSION: 1. Small skin defect anterior to the tibial tubercle with underlying edema/cellulitis and an ill-defined phlegmonous collection measuring approximately 1.9 x 0.9 x 2.8 cm. No drainable collection. No evidence of osteomyelitis. Mild reactive edema and fluid in the deep infrapatellar bursa. 2. Subcutaneous edema surrounds the knee and extends distally superficial to the muscles of the lateral compartment. Electronically signed by: Riley Neal MD 06/11/2024 01:41 PM [facility] Assessment and Plan (1) Cellulitis: Status: Acute Plan d5 for 34yo M with DM1 on insulin pump admitted for sepsis from LLE cellulitis after recent abrasions to the knees sepsis due to cellulitis - 06/08-06/12 vanco + pip-lisa, 06/10-06/12 clinda; 06/12- linezolid + levofloxacin per ID consultation - BCx negative - no evidence of deep space infection; no drainable collection; phlegmon present - Wound Care consult re: enzymatic debridement of eschar - PT evaluation; may need crutches to ambulate - APAP + ketorolac + oxycodone + morphine for pain [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 Quality Stroke Does the patient have a stroke diagnosis?: No VTE Prior VTE?: No VTE Risk Level:: Medical - low VTE Device Contraindication: Treatment Not Indicated VTE Drug Contraindication: Treatment Not Indicated
[2024-06-12 11:11] LABS: Glucose, Whole Blood 142 mg/dL (60-115)
--- NOTE | 2024-06-12 11:14 | MHC.CM.PN ---
Addendum entered by Emmy Amaya RN 06/12/24 12:06: PT rec crutches and outpatient PT. Original Note: Per MD rounds not medically cleared for dc. PT eval pending, ? need for crutches. CM will continue to follow.
[2024-06-12] MEDS: oxyCODONE HCl Immed Release 5 MG TABLET PO ×2 (12:46→20:08)
[2024-06-12 15:17] VITALS: BP 136/63; PULSE 60; RESP 14; TEMP 36.6; O2SAT 96
[2024-06-12 16:10] LABS: Glucose, Whole Blood 68 mg/dL (60-115)
[2024-06-12] MEDS: levoFLOXacin/D5W 750 MG/150 ML PIGGYBACK 100 MG IV (16:52)
--- NOTE | 2024-06-12 17:02 | HO.WOUND ---
Wound Consult: Initial 34yr old?male admitted to [facility] on 06/08/24 - See progress notes and H&P for detailed history.? Wound consult placed for Left Leg cellulitis and wound.? Patient agreeable to assessment and photo documentation.? Patient reports injury was secondary to a fall he sustained while working. Initially no s/s of infection to the lower leg wounds but the left began to swell and become painful. Patient is a diabetic and AIC is 8.1 as of this admission. Patient reports his does have an upcoming endocrinology appointment for routine followup. Advised pt to discuss AIC with his provider, patient was educated on the effects of poor blood sugar control and skin infections and wound healing. Patient advised to maintain tight sugar control - he reports understanding. He reports the leg itself is better overall. See photo below. There is red erythema noted in the immediate periwound. The inferior skin marking shows significant reduction in erythema and swelling continues. Patient reports improved movement of knee but still significantly impacted. The area initially had a large dry scab in place when palpated creamy zhao drainage weeped out of scab, the scab was fluctuant. Soft moist dressing applied and left in place for the day in an effort to soften scab to allow for proper cleaning. Afternoon reassessment revealed - scab removed, full thickness tissue loss with marbled wound bed of red and yellow slough adherent to wound bed. Left Lower Leg Etiology: ??Abrasion / ulceration with cellulitis - Present on Admission Wound Bed: full thickness tissue loss with red moist wound bed and central yellow slough Drainage / Odor: creamy zhao drainage Edges: irregular? Cristel wound: red erythema with swelling noted - ? No Induration, Fluctuance noted Pain: paint noted Goals of Treatment: ? antimicrobial moisture management with Durafiber AG lower leg elevation Recommendations: 1. Maintain blood glucose levels per Providers order. 2. Left Lower Leg - Cleanse with Normal saline pat dry. Apply skin prep to periwound, let dry. Cover wound bed with Durafiber AG, and foam dressing. Change every other day. May shower. Elevate left leg throughout the day to aid in swelling reduction. Re-consult wound care Nurse for wound deterioration or wound changes.
[2024-06-12 20:33] LABS: Glucose, Whole Blood 184 mg/dL (60-115)
[2024-06-12 23:11] VITALS: BP 116/68; PULSE 70; RESP 16; TEMP 36.4; O2SAT 94
[2024-06-13] MEDS: Linezolid/D5W 600 MG/300 ML PIGGYBACK 300 MG IV (06:19)
[2024-06-13 07:05] VITALS: BP 122/72; PULSE 71; RESP 16; TEMP 36.8; O2SAT 96
[2024-06-13 07:24] LABS: Glucose, Whole Blood 167 mg/dL (60-115)
[2024-06-13] MEDS: 0.9 % Sodium Chloride Flush 3 ML SYRINGE IVFLUSH (07:28)
[2024-06-13] MEDS: Acetaminophen 325 MG TABLET 650 MG PO (07:56)
[2024-06-13] MEDS: Atorvastatin Calcium 40 MG TABLET PO (07:56)
[2024-06-13] MEDS: oxyCODONE HCl Immed Release 5 MG TABLET PO (07:57)
--- NOTE | 2024-06-13 10:29 | MHC.CM.PN ---
Per MD rounds patient medically cleared for dc home self care. Crutches at bedside, as recommended by PT. Father will provide transport home at 11am. RN aware.
--- NOTE | 2024-06-13 10:51 | P.DS_ITS ---
DS: Providers Provider Date of Service: 06/13/24 Date of admission: 06/08/24 23:16 Primary care physician: Jake Pascal MD Consults: 06/10/24 08:08 Consult to Wound Care Routine Reason for consultation: wound nd redness swelling increasing Has provider been notified: Yes 06/11/24 07:24 Consult to Orthopedics Routine Consulting Provider: [facility] Reason for consultation: cellulitis with inflammatory stranding extending to patellar tendon + tibia 06/11/24 09:14 Consult to Infectious Diseases Routine Consulting Provider: [facility] Reason for consultation: nonresolving cellulitis DS: Diagnosis Discharge Diagnosis (1) Cellulitis: Status: Acute (2) Sepsis: Status: Acute (3) Type 1 diabetes: Status: Acute DS: Summary Hospital Course Hospital Course: From the history and physical by the admitting hospitalist, Dr Juanita Hassan, 06/08/24: This is a 34-year-old male with pertinent history of insulin-dependent diabetes mellitus who presents to the emergency department for concerns of left leg infection. Patient has bilateral knee abrasions due to work-related injury that occurred a week ago. He states the abrasions have been healing well with scab formation. On the day of presentation, he started having pain over his left lower extremity. Noticed associated erythema and warmth. States he noticed pus drainage and was feeling feverish throughout the day. No history of skin infection in the past. Has not tried oral antibiotics. No chest pain, palpi tations, shortness of breath, abdominal pain, changes in urinary or bowel habits. In the emergency department, WBC found to be 17 and patient was tachycardic. Initiated on broad-spectrum IV antibiotics and given IV fluids 34yo M with DM1 on insulin pump [facility] admitted for sepsis from LLE cellulitis after recent abrasions to the knees sustained on 05/28/24. He was admitted to the medical-surgical unit. Initially treated with vancomycin and piperacillin-tazobactam 06/08-06/12; also got clindamycin 06/10-06/12 to shut off toxin production. Blood cultures negative. Due to slow improvement, Infectious Disease and Orthopedics were consulted. CT and MRI revealed no drainable abscess or deep space infection; just an ill-defined phlegmon. Antibiotics were switched to linezolid plus levofloxacin 06/12-06/14. Wound Care was consulted and recommendation was made for Durafiber Ag and foam dressing. After he made sufficient improvement, he was discharged home on 5 more days of linezolid plus levofloxacin. Ambulation limited by pain; crutches recommended. For Pain control, he received APAP, ketorolac, and oxycodone while hospitalized; he was advised to use APAP and ibuprofen at home. He should follow up with his primary care doctor in 1 week. Time Attestation Discharge Coordination Time (in mins): 45 Quality: Safe Use of Opioids Does Pt have an Active Cancer Diagnosis on the Problem List?: No Quality: Stroke Does the patient have a stroke diagnosis?: No Physical Exam Vital Signs: Vital Signs: Last Vital Signs Temp 98.3 F 06/13/24 07:05 Pulse 71 06/13/24 07:05 Resp 16 06/13/24 07:05 BP 122/72 06/13/24 07:05 Pulse Ox 96 06/13/24 07:05 O2 Del Method Room Air 06/13/24 07:05 BMI result Body Mass Index 30.4 Gen: in no acute distress HEENT: sclera anicteric, moist mucus membranes Neck: supple Lungs: clear to auscultation bilaterally Heart: regular rate and rhythm, no murmurs Abd: soft, non-tender, non-distended Ext: no edema Skin: dry crusting scabs on both R knee, L knee with clean abrasion with some serous fluid and scab largely removed by dressing, infrapatellar swelling + redness, faint erythema extending inferiorly anteriorly has resolved; no purulence or fluctuance noted Neuro: alert and oriented x3, no focal findings Psych: appropriate affect DS: Data Data Completed and Pending Completed studies during hospitalization [Text1]: Laboratory Results WBC 9.1 X10*3/uL (4.8-10.8) 06/12/24 05:34 RBC 4.29 X10*6/uL (4.60-5.80) L 06/12/24 05:34 Hgb 13.4 g/dl (14.0-18.0) L 06/12/24 05:34 Hct 40.5 % (42.0-52.0) L 06/12/24 05:34 MCV 94.4 fL (80.0-98.0) 06/12/24 05:34 MCH 31.2 pg (27.0-33.0) 06/12/24 05:34 MCHC 33.1 g/dl (31.0-36.0) 06/12/24 05:34 RDW 11.9 % (11.0-16.0) 06/12/24 05:34 Plt Count 208 X10*3/uL (160-400) 06/12/24 05:34 MPV 11.6 fL (9.4-12.4) 06/12/24 05:34 Immature Gran % (Auto) 0.3 % (0.0-0.4) 06/12/24 05:34 Neut % (Auto) 64.9 % (45-73) 06/12/24 05:34 Lymph % (Auto) 23.6 % (20-40) 06/12/24 05:34 Scurry % (Auto) 7.4 % (2-11) 06/12/24 05:34 Eos % (Auto) 3.4 % (0-4) 06/12/24 05:34 Baso % (Auto) 0.4 % (0-2) 06/12/24 05:34 Lymph # (Auto) 2.1 X10*3/uL (1.2-4.9) 06/12/24 05:34 Scurry # (Auto) 0.7 X10*3/uL (0.1-1.2) 06/12/24 05:34 Eos # (Auto) 0.3 X10*3/uL (0.0-0.4) 06/12/24 05:34 Baso # (Auto) 0.0 X10*3/uL (0.0-0.2) 06/12/24 05:34 Abs Immat Gran (auto) 0.03 X10*3/uL (0.00-0.03) 06/12/24 05:34 Absolute Neuts (auto) 5.9 x10*3/uL (2.0-8.3) 06/12/24 05:34 Absolute Nucleated RBC 0.000 X10*3/uL (0.0-0.012) 06/12/24 05:34 Nucleated RBC % (auto) 0.0 /100WBC (0.0-0.2) 06/12/24 05:34 ESR 36 MM/HR (0-15) H 06/12/24 05:34 Hold Purple Top SEE NOTE 06/11/24 06:55 Sodium 145 mmol/L (135-145) 06/12/24 05:34 Potassium 4.0 mmol/L (3.3-5.1) 06/12/24 05:34 Chloride 109 mmol/L (96-108) H 06/12/24 05:34 Carbon Dioxide 28 mmol/L (22-29) 06/12/24 05:34 Anion Gap 12 (12-20) 06/12/24 05:34 BUN 9 mg/dL (9-16) 06/12/24 05:34 Creatinine 1.01 mg/dL (0.5-1.4) 06/12/24 05:34 Estim Creat Clear Calc 114.8 06/12/24 05:34 Estimated GFR > 60 06/12/24 05:34 POC Glucose 167 mg/dL (60-115) H 06/13/24 07:10 Random Glucose 94 mg/dL (60-115) 06/12/24 05:34 Estimat Average Glucose 186 mg/dL 06/09/24 04:18 Hemoglobin A1c % 8.1 % (<6.0) H 06/09/24 04:18 Lactic Acid 1.1 mmol/L (0.5-2.0) 06/08/24 21:39 Calcium 9.3 mg/dL (8.4-10.2) 06/12/24 05:34 Magnesium 1.7 mg/dL (1.6-2.6) 06/08/24 21:39 Total Bilirubin 0.8 mg/dL (0.0-1.0) 06/12/24 05:34 Direct Bilirubin 0.3 mg/dL (0.0-0.5) 06/11/24 06:55 AST 15 U/L (5-37) 06/12/24 05:34 ALT 20 U/L (0-40) 06/12/24 05:34 Alkaline Phosphatase 74 U/L (39-117) 06/12/24 05:34 Total Creatine Kinase 34 U/L (38-174) L 06/11/24 06:55 C-Reactive Protein 9.35 mg/dL (< or = 0.50) H 06/11/24 06:55 Total Protein 6.4 g/dL (6.5-8.0) L 06/12/24 05:34 Albumin 3.7 g/dL (3.5-5.0) 06/12/24 05:34 Lipase 8 U/L (8-78) 06/08/24 21:39 Vancomycin Trough 8.8 mcg/mL (10.0-20.0) L 06/10/24 07:58 Random Vancomycin 22.3 mcg/mL (15-20) H 06/11/24 06:55 Impressions Venous Duplex 06/08/24 21:30 IMPRESSION: No evidence of deep venous thrombosis involving the left lower extremity. Electronically signed by: Franko Sharma MD 06/08/2024 11:16 PM EST RP Knee X-Ray 06/08/24 22:00 IMPRESSION: No significant abnormality identified Electronically signed by: Franko Sharma MD 06/08/2024 11:33 PM EST RP Knee CT 06/10/24 12:29 IMPRESSION: Skin wound or laceration anterior to the proximal tibia with prominent subcutaneous edema/cellulitis. No abscess. No joint effusion. No acute osseous abnormality. Electronically signed by: Riley Neal MD 06/10/2024 02:24 PM EST RP Knee MRI 06/11/24 12:00 IMPRESSION: 1. Small skin defect anterior to the tibial tubercle with underlying edema/cellulitis and an ill-defined phlegmonous collection measuring approximately 1.9 x 0.9 x 2.8 cm. No drainable collection. No evidence of osteomyelitis. Mild reactive edema and fluid in the deep infrapatellar bursa. 2. Subcutaneous edema surrounds the knee and extends distally superficial to the muscles of the lateral compartment. Electronically signed by: Riley Neal MD 06/11/2024 01:41 PM EST RP Discharge Plan Discharge Anticipated Discharge Date/Time: 06/13/24 10:47 Patient Disposition: Home, Self-Care Discharge Diagnosis: cellulitis Referrals: Jake Pascal MD [Primary Care Provider] - 1 Week Discharge Medications: New linezolid 600 mg tablet 600 mg PO BID Qty: 10 0RF levofloxacin 750 mg tablet 750 mg PO DAILY Qty: 5 0RF Continued atorvastatin 40 mg tablet 40 mg PO DAILY insulin lispro [Humalog U-100 Insulin] 100 unit/mL solution 0 - 150 unit subcut DAILY ibuprofen 800 mg tablet 800 mg PO TID PRN (Reason: Pain) Discharge Orders: Discharge Order (Routine); Ordered 06/13/24 Ordered By: Kate Gutierrez Diet: Diabetic diet Activity on Discharge: As tolerated Stand Alone Forms: Patient Portal Discharge page Print Language: [place] Activity Restrictions/Additional Instructions: Topical Wound Care Recommendations: Left Lower Leg - Cleanse with Normal saline pat dry. Apply skin prep to periwound, let dry. Cover wound bed with Durafiber AG, and foam dressing. C hange every other day. May shower. Elevate left leg throughout the day to aid in swelling reduction. Care Plan Goals: cure of wound resolution of infection Health Concerns: cellulitis Plan of Treatment: wound care as above antibiotics for 5 days: - linezolid 600 mg twice daily - levofloxacin 750 mg once daily Please follow up with your primary care doctor within 1 week. Return to the hospital if you experience recurrent or worsening symptoms. Assessment: See Discharge Summary.
== END 2024-06-13 12:01 | disposition home or self-care (01) | DRG 872 ==
LOC: HO.ED 23:07 → HO.EDOVER 23:46 → HO.S3 06-09 06:50
PROVIDERS: Admitting Provider Student in an Organized Health Care Education/Training Program; Emergency Provider Emergency Medicine; PCP Internal Medicine; Visit Provider Family Medicine
DX: A41.9 Sepsis, unspecified organism (principal); L03.116 Cellulitis of left lower limb; E10.65 Type 1 diabetes mellitus with hyperglycemia; E78.5 Hyperlipidemia, unspecified; W19.XXXA Unspecified fall, initial encounter; Y99.0 Civilian activity done for income or pay; Z96.41 Presence of insulin pump (external) (internal); Z79.899 Other long term (current) drug therapy
CPT/HCPCS: 36415; 73560; 73701; 73723; 80048; 80053; 80076; 80202; 82550; 82565; 82947; 83036; 83605; 83690; 83735; 85025; 85027; 85652; 86140; 87040; 93971; 97161; 99285; A9585; J0736; J1885; J1956; J2020; J2543; J3370; J3371; J7120; Q9967

== ENCOUNTER → 2024-06-08 23:16 | Outpatient (BNV) | payer OTHER, SELFPAY | PROVIDERS: Admitting Provider Student in an Organized Health Care Education/Training Program; Emergency Provider Emergency Medicine; PCP Internal Medicine; Visit Provider Student in an Organized Health Care Education/Training Program | DX: L03.116 Cellulitis of left lower limb (principal) | CPT/HCPCS: 99222; 99232; 99239 ==

== ENCOUNTER → 2024-06-08 23:16 | Outpatient (BNV) | payer OTHER, SELFPAY | PROVIDERS: Admitting Provider Student in an Organized Health Care Education/Training Program; Emergency Provider Emergency Medicine; PCP Internal Medicine; Visit Provider Physician Assistant | DX: L03.116 Cellulitis of left lower limb (principal) | CPT/HCPCS: 99222 ==

== ENCOUNTER → 2024-06-08 23:16 | Outpatient (BNV) | payer OTHER, SELFPAY | PROVIDERS: Admitting Provider Student in an Organized Health Care Education/Training Program; Emergency Provider Emergency Medicine; PCP Internal Medicine; Visit Provider Internal Medicine | DX: L03.116 Cellulitis of left lower limb (principal); D72.829 Elevated white blood cell count, unspecified; A41.9 Sepsis, unspecified organism | CPT/HCPCS: 99222; 99499 ==

== ENCOUNTER → 2024-06-16 09:46 | Outpatient (BNVA) | payer OTHER, SELFPAY | PROVIDERS: PCP Internal Medicine; Visit Provider Registered Nurse | DX: S80.212A Abrasion, left knee, initial encounter (principal); L03.116 Cellulitis of left lower limb; Y35.891A Legal intervention involving other specified means, law enforcement official injured, initial encounter | CPT/HCPCS: 99214 ==

== ENCOUNTER → 2024-06-20 09:01 | Outpatient (BNVA) | payer OTHER, SELFPAY | PROVIDERS: PCP Internal Medicine; Visit Provider Registered Nurse | DX: S80.02XA Contusion of left knee, initial encounter (principal); L03.116 Cellulitis of left lower limb; Y35.891A Legal intervention involving other specified means, law enforcement official injured, initial encounter; Z02.79 Encounter for issue of other medical certificate | CPT/HCPCS: 99213 ==